=== PATIENT | male | born 1955 | race Caucasian/White ===

== ENCOUNTER → 2019-07-23 | Outpatient (CLI) | payer OTHER ==
[2019-07-23 10:42] LABS: HCT 45.3 % (39.0-53.0); HGB 15.4 gm/dL (13.0-17.5); MCH 32.8 pg (25.0-35.0); MCHC 33.9 g/dL (31.0-37.0); MCV 96.6 fL (80.0-100.0); Mean Platelet Volume 6.9; Platelet Count 273 k/uL (150-450); RBC 4.69 m/uL (4.30-5.90); RDW 14.4 % (11.5-15.5); WBC 6.2 k/uL (3.8-10.6)
[2019-07-23 10:43] LABS: INR 0.9 (<1.2); Partial Thromboplastin Time 28.1 sec (22.0-30.0); Prothrombin Time 9.7 sec (9.0-12.0)
[2019-07-23 10:55] LABS: ALT 28 U/L (21-72); AST 20 U/L (17-59); African American GFR (CKD) >90 (>60 ml/min/1.73 sqM); Albumin 4.4 g/dL (3.5-5.0); Alkaline Phosphatase 83 U/L (38-126); Anion Gap 11 mmol/L; Blood Urea Nitrogen 13 mg/dL (9-20); Calcium 9.8 mg/dL (8.4-10.2); Carbon Dioxide 27 mmol/L (22-30); Chloride 101 mmol/L (98-107); Glucose 94 mg/dL (74-99); Potassium 4.4 mmol/L (3.5-5.1); Sodium 139 mmol/L (137-145); Total Bilirubin 0.6 mg/dL (0.2-1.3); Total Protein 7.5 g/dL (6.3-8.2)
[2019-07-23 11:13] LABS: Appearance,Urine Clear (Clear); Bilirubin,Urine Negative (Negative); Blood,Urine Negative (Negative); Color,Urine Light Yellow; Glucose,Urine (UA) Negative (Negative); Ketones,Urine Negative (Negative); Leukocyte Esterase,Urine Negative (Negative); Nitrite,Urine Negative (Negative); Protein,Urine Negative (Negative); Specific Gravity,Urine 1.008 (1.001-1.035); Urobilinogen,Urine <2.0 mg/dL (<2.0)
== END | disposition home or self-care (01) ==
LOC: LABPAT 09:53
PROVIDERS: ATTEND Orthopaedic Surgery Sports Medicine
DX: Z01.818 Encounter for other preprocedural examination (principal)
CPT/HCPCS: 36415; 80053; 81003; 85027; 85610; 85730; 87070

== ENCOUNTER 2019-11-19 11:17 | Day surgery (SDC) | payer OTHER ==
[2019-11-12 16:18] VITALS: BMI 28.2
[~2019-11-19 11:17] MED LIST: DEXAMETHASONE SOD PHOSPHATE 10 MG/ML 1 ML VIAL IV ONE; HYDROmorphone 0.5 MG/0.5 ML SYRINGE IVP PRN; LACTATED RINGERS 1,000 ML IV SCH; LIDOCAINE 1% 20 ML VIAL (10MG/ML) FOR IV START INTRADERMA PRN; MIDAZOLAM 2 MG/2 ML VIAL IV PRN; ONDANSETRON 4 MG/2 ML VIAL IVP ONE; Pre Op ABX Message 1 EACH MISC MISCELLANE ONE; SCOPOLAMINE 1.5MG/72HR PATCH TRANSDERM ONE
[2019-11-19 11:55] VITALS: TEMP 97.5
[2019-11-19] MEDS ORDERED: KETAMINE 10 MG/ML 20 ML VIAL ONE (12:35)
[2019-11-19] MEDS ORDERED: LIDOCAINE 1% INJ 10MG/ML (20 ML MDV) ONE (12:35)
[2019-11-19] MEDS ORDERED: PROPOFOL 10 MG/ML 20 ML VIAL IV ONE (12:35)
[2019-11-19] MEDS ORDERED: MIDAZOLAM 2 MG/2 ML VIAL ONE (12:35)
[2019-11-19] MEDS ORDERED: ePHEDrine SULFATE/0.9% NACL/PF 50 MG/5 ML SYRINGE IV ONE (12:35)
[2019-11-19] MEDS ORDERED: fentaNYL (PF) 50 MCG/ML 2 ML AMP ONE (12:35)
[2019-11-19] MEDS ORDERED: LIDOCAINE 1%-EPI 1:100,000 20 ML VIAL SQ ONE ×2 (12:56)
[2019-11-19] MEDS ORDERED: BUPIVACAINE (PF) 0.5% 30 ML VIAL SQ ONE (12:56)
[2019-11-19 14:02] VITALS: PULSE 87
--- NOTE | 2019-11-19 14:06 | P.OP ---
Date of Procedure: 11/19/19 Preoperative Diagnosis: Right carpal tunnel syndrome Postoperative Diagnosis: Right carpal tunnel syndrome Procedure(s) Performed: Right endoscopic carpal tunnel release Anesthesia: MAC, local Surgeon: Joseph Vincent Estimated Blood Loss (ml): 1 Disposition: same day Indications for Procedure: The patient is a pleasant 64-year-old male who was diagnosed with bilateral carpal tunnel syndrome. Treatment options (and associated risks and benefits) were discussed in the office. The patient elected to proceed with surgical release, beginning with the right side. In preop, the operative site was confirmed and marked. All questions and concerns were addressed to patient's satisfaction. Consent forms were signed. Description of Procedure: The patient was positioned supine with the right arm on a hand table. A tourniquet was applied. Monitored anesthesia was administered uneventfully. A time-out was performed, confirming patient identifiers, the operative side, site and the procedure to be performed: all team members expressed agreement. Using aseptic technique, local anesthetic was injected into the subcutaneous tissues around the planned incision. The right upper extremity was then prepped and draped in standard, sterile fashion. The limb was exsanguinated with an Esmarch and the tourniquet was inflated. Loupe magnification was used throughout the case for optimum visualization. A 1.5 cm transverse incision was marked just proximal to the wrist flexion crease, in line with the radial border of the ring finger. The skin was sharply incised. The subcutaneous tissues were noted to be quite dense. These were divided with blunt, spreading dissection. The volar carpal fascia was identified and sharply incised. The median nerve was identified below. This had a flattened, dusky appearance, consistent with chronic compression. The nerve was fairly adherent to the underside of the carpal fashion. A [place] elevator was inserted and used to gently release the adhesions. A synovial elevator was inserted to release additional adhesions on the underside of the transverse carpal ligament distally. The washboard effect was palpable. A dilator was inserted to sound and enlarge the carpal tunnel. The hamate hook was palpable ulnarly. The introitus to the tunnel was fairly tight and the distal expansion of the volar carpal fascia was quite thickened. This was further released with scissors under direct visualization. The side-specific guide and camera were inserted. The transverse carpal ligament was clearly visualized above. The distal edge of the ligament was identified and palpated with a probe. A rasp was used to clear the remaining synovial adhesions. The endoscopic blade was inserted and the distal half of the ligament was sharply incised. Residual distal transverse fibers were released and then the proximal portion of the ligament was divided. Wide release of ligament was visually confirmed. The camera was removed. The volar carpal fascia proximal to the incision was released with scissors under direct visualization. The tourniquet was released after 15 minutes at 250 mm Hg. Good hemostasis was obtained with manual pressure. The wound was thoroughly irrigated with normal saline. The incision was closed with interrupted 4-0 Nylon sutures. Additional local anesthetic with epinephrine was injected for adjunctive postoperative pain control and hemostasis. A soft, sterile dressing was applied. All sponge, needle and instrument counts were correct at the end of the case. The patient tolerated the procedure well and was transferred to recovery in stable condition.
[2019-11-19 14:15] VITALS: BP 127/76; RESP 16
== END 2019-11-19 14:28 | disposition home or self-care (01) ==
LOC: OR 11:17
PROVIDERS: ATTEND Orthopaedic Surgery
DX: G56.03 Carpal tunnel syndrome, bilateral upper limbs (principal); I10 Essential (primary) hypertension; E78.5 Hyperlipidemia, unspecified; F17.210 Nicotine dependence, cigarettes, uncomplicated; K21.9 Gastro-esophageal reflux disease without esophagitis; M19.231 Secondary osteoarthritis, right wrist; H91.90 Unspecified hearing loss, unspecified ear; D64.9 Anemia, unspecified; Z87.19 Personal history of other diseases of the digestive system; R26.81 Unsteadiness on feet; Z96.653 Presence of artificial knee joint, bilateral; Z79.899 Other long term (current) drug therapy; Z79.891 Long term (current) use of opiate analgesic
CPT/HCPCS: 29848; J2250; J1100; J2405; J2001; J3010; J2704

== ENCOUNTER → 2021-04-11 | Outpatient (CLI) | payer OTHER ==
--- NOTE | 2021-04-12 02:52 | MR ---
EXAMINATION TYPE: MR cervical spine wo con DATE OF EXAM: 04/11/2021 COMPARISON: None HISTORY: Stiff neck, pain in shoulders, numbness in both hands. Multiplanar multiecho imaging of the cervical spine was performed without contrast. Vertebra have normal alignment. There is degenerative disc space narrowing from C3 to T1 with small p osterior multilevel cervical disc herniation. Spinal canal measures 7.5 mm at C4-5 which is the [place]. Canal is 7.9 mm at C3-4. There is no compression fracture. Cervical cord has normal signa l pattern. There is no edema. Brainstem is intact. There is no cervical paraspinal mass. There is hyp ertrophic multilevel facet arthropathy. IMPRESSION: Multilevel spondylotic changes. Mild relative spinal stenosis at C3-4 and C4-5. No significant cord c ompression. No fracture.
== END | disposition home or self-care (01) ==
LOC: RADMRIMAIN 17:54
PROVIDERS: ATTEND Orthopaedic Surgery
DX: M48.02 Spinal stenosis, cervical region (principal); M47.812 Spondylosis without myelopathy or radiculopathy, cervical region
CPT/HCPCS: 72141

== ENCOUNTER → 2021-04-13 | Outpatient (CLI) | payer OTHER ==
[2021-04-13 11:25] LABS: Basophils # (A) 0.04 X 10*3/uL (0.00-0.10); Basophils % (A) 0.8 %; Eosinophils # (A) 0.12 X 10*3/uL (0.04-0.35); Eosinophils % (A) 2.4 %; HCT 43.6 % (39.6-50.0); HGB 14.4 g/dL (13.0-17.0); Lymphocytes # (A) 1.75 X 10*3/uL (0.90-5.00); Lymphocytes % (A) 35.1 %; MCH 32.1 pg (27.0-32.0); MCV 97.3 fL (80.0-97.0); Mean Platelet Volume 9.9 fL (9.5-12.2); Monocytes # (A) 0.54 X 10*3/uL (0.20-1.00); Monocytes % (A) 10.8 %; Neutrophils # (A) 2.52 X 10*3/uL (1.80-7.70); Neutrophils % (A) 50.7 %; Platelet Count 251 X 10*3/uL (140-440); RBC 4.48 X 10*6/uL (4.40-5.60); RDW 12.8 % (11.5-14.5); WBC 4.98 X 10*3/uL (4.50-10.00)
[2021-04-13 14:00] LABS: African American GFR (CKD) 109.4 (60.0-200.0); Albumin 4.5 g/dL (3.80-4.90); Albumin/Globulin Ratio 1.96 (1.60-3.17); Anion Gap 6.9 mmol/L (4.00-12.00); Calcium 9.7 mg/dL (8.7-10.3); Carbon Dioxide 26.1 mmol/L (21.6-31.8); Chol/HDL Ratio 2.37; Globulin 2.3 g/dL (1.6-3.3); LDL Cholesterol,Calculated 67.2 mg/dL (0.0-131.0); Non-African American GFR(CKD) 94.4 (60.0-200.0); Potassium 4.6 mmol/L (3.5-5.5); Total Bilirubin 0.5 mg/dL (0.3-1.2); Total Protein 6.8 g/dL (6.2-8.2); VLDL Calculation 14.8 mg/dL (5.00-40.00)
== END | disposition home or self-care (01) ==
LOC: LABWHC1 07:05
PROVIDERS: ATTEND Internal Medicine
DX: Z00.01 Encounter for general adult medical examination with abnormal findings (principal); E78.00 Pure hypercholesterolemia, unspecified; I10 Essential (primary) hypertension
CPT/HCPCS: 36415; 80053; 80061; 85025

== ENCOUNTER → 2021-05-31 | Outpatient (CLI) | payer OTHER ==
[2021-05-31 14:03] VITALS: BP 127/68; PULSE 82; RESP 18; TEMP 98.4
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
== END ==
LOC: PNWHC3 13:10
PROVIDERS: ATTEND Specialist
DX: M54.12 Radiculopathy, cervical region (principal)
CPT/HCPCS: 99211

== ENCOUNTER 2021-07-10 07:14 | Day surgery (SDC) | payer OTHER ==
[2021-07-05 11:59] VITALS: BMI 28.7
[~2021-07-10 07:14] MED LIST changes: -DEXAMETHASONE SOD PHOSPHATE 10 MG/ML 1 ML VIAL IV ONE; -HYDROmorphone 0.5 MG/0.5 ML SYRINGE IVP PRN; -LIDOCAINE 1% 20 ML VIAL (10MG/ML) FOR IV START INTRADERMA PRN; -MIDAZOLAM 2 MG/2 ML VIAL IV PRN; -ONDANSETRON 4 MG/2 ML VIAL IVP ONE; -Pre Op ABX Message 1 EACH MISC MISCELLANE ONE; -SCOPOLAMINE 1.5MG/72HR PATCH TRANSDERM ONE
[2021-07-10 08:16] VITALS: TEMP 97.8
[2021-07-10] MEDS ORDERED: LACTATED RINGERS 1,000 ML IV ONE (08:16)
[2021-07-10] MEDS ORDERED: IOPAMIDOL M200 10 ML VIAL ONE (08:44)
[2021-07-10] MEDS ORDERED: fentaNYL (PF) 50 MCG/ML 2 ML AMP ONE (08:44)
[2021-07-10] MEDS ORDERED: MIDAZOLAM 2 MG/2 ML VIAL ONE (08:44)
[2021-07-10] MEDS ORDERED: DEXAMETHASONE SOD PHOSPHATE 10 MG/ML 1 ML VIAL ONE (08:44)
--- NOTE | 2021-07-10 08:57 | P.PCN ---
Date of Procedure: 07/10/21 Surgeon: Alva Duffy Pathology: none sent Condition: stable Disposition: PACU Description of Procedure: PROCEDURE 1. Cervical epidural steroid injection under fluoroscopic guidance, C7-T1 left paramedian approach. 2. Cervical epidurogram. : PREOPERATIVE DIAGNOSIS: Cervical radiculopathy, cervical spondylosis without myelopathy POSTOPERATIVE DIAGNOSIS: : Same as above ANESTHESIA: Local anesthesia with 1% lidocaine and IV moderate conscious sedation with Versed and Fentanyl . EBL 0 PROCEDURE INDICATION: The patient with neck pain and radiculopathy unresponsive to conservative treatment consents for procedure. PROCEDURE DESCRIPTION / TECHNIQUE: The patient was seen and identified in the preoperative area. Risks, benefits, complications, including but not limited to infections ,bleeding , allergic reactions to the medications ,and not complete pain relief, and alternatives were discussed with the patient, the patient agreed to proceed with the procedure and signed the consent. Patient was taken to the OR and time out was completed. The patient was placed in the prone position on the procedure table. A pillow was placed under the patients chest to increase the flexion of the cervical spine . The cervical area was prepped and draped in the usual sterile fashion. Vital signs were closely monitored during the procedure. Conscious sedation was used during the procedure to decrease patients anxiety. Using anterior-posterior fluoroscopy, the C7-T1 interlaminar space was identified and the skin over this site was marked and then infiltrated with 1% lidocaine subcutaneously. Subsequently, a 20-gauge 3-1/2-inch Tuohy epidural needle was inserted and advanced toward the epidural space by means of loss of resistance to air technique and guided by AP and lateral fluoroscopy. The needle tip contacted the lamina of T1 vertebra first, then it was walked off bone and into the epidural space using the loss of to air and fluoroscopic guidance to identify the epidural space. The correct needle position in the epidural space was verified with the injection of 1 mL of the water soluble contrast dye Isovue and observing an excellent epidurogram with the epidural spread of the dye, after negative aspiration for blood and CSF and in the absence of paresthesias. Again after negative aspiration, 20 mg of Decadron was injected and a washout of epidurogram was seen. Needle was withdrawn intact, skin was cleansed, and bandages were applied. A copy of the needle placement picture was saved to the fluoroscopy machine.
[2021-07-10] MEDS ORDERED: IV FLUID CONTINUATION 1,000 ML IV ONE (09:01)
[2021-07-10 09:05] VITALS: RESP 16
[2021-07-10 09:20] VITALS: BP 122/72; PULSE 70
--- NOTE | 2021-07-10 09:55 | FL ---
Fluoroscopy HISTORY: Pain 6 seconds fluoroscopy time supplied to the referring clinician. 1 intraoperative C-arm image documen ts the procedure. See dictated report from anesthesia.
== END 2021-07-10 09:31 | disposition home or self-care (01) ==
LOC: ORPAIN 07:14
PROVIDERS: ATTEND Anesthesiology
DX: M47.22 Other spondylosis with radiculopathy, cervical region (principal)
CPT/HCPCS: 62321; J2250; J1100; J3010; Q9966; 99152

== ENCOUNTER → 2021-08-06 | Outpatient (CLI) | payer OTHER ==
[2021-08-06 14:48] VITALS: BP 122/71; PULSE 89; RESP 18
--- NOTE | 2021-08-06 15:07 | P.PN ---
Subjective Progress Note Date: 08/06/21 This is a 66-year-old gentleman with history of neck pain with radiation to the left upper extremity with numbness and tingling in the left hand. The patient received 1 cervical epidural steroid injection which did not give him any pain relief. The patient takes 2 pills of Tylenol Extra Strength every day for his pain. His pain level today is 6 out of 10 on a scale from 0-10. 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 Patient denies new-onset weakness, bowel/bladder incontinence, or any other signs or symptoms of cauda equina syndrome. There are no signs of acute intoxication, and no indications of medication diversion or overuse. In addition to above, 13-point review of systems is also negative for chest pain, shortness of breath, changes in vision, changes in hearing, new onset weakness, abdominal pain, diarrhea, extreme fatigue, malaise, fever, skin changes, homicidal or suicidal ideation, or bowel or bladder incontinence. 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 Explanation: When patients on opioids, opioid and psychological risk scores were reviewed. Diagnoses, prognoses, and multiple treatment options including but not limited to physical therapy, interventional therapies, adjuvant medical therapies, narcotic medication therapies, and surgery were discussed with the patient and all questions were answered to the patient's satisfaction. 2. Opioid agreement:When patients are prescribed opoids through our clinic, opioid agreement is signed with the patient and the patient is warned not to use opioids while driving or before driving and not to combine opioids with benzodiazepines or alcohol. 3. Counseling: When patient is smoking or obese, the patient was counseled extensively on SMOKING CESSATION, BODY MASS INDEX, EXERCISE. Specifically, the patient was instructed regarding the importance of smoking cessation, obesity, and exercise in the context of both chronic pain and overall health. 4. Procedures: The patient would like to avoid injections now and he will continue taking Tylenol. 5. Consultations: None 6. Investigations: None 7. Medications: None prescribed today 8. Disposition: Return to clinic as needed 9. Maps were reviewed and were appropriate. Objective - Vital Signs Vital signs: Vital Signs Temp Pulse 89 08/06/21 14:45 Resp 18 08/06/21 14:45 BP 122/71 08/06/21 14:45 Pulse Ox 96 08/06/21 14:45
== END ==
LOC: PNWHC3 14:19
PROVIDERS: ATTEND Anesthesiology
DX: M47.22 Other spondylosis with radiculopathy, cervical region (principal); M79.18 Myalgia, other site; F17.200 Nicotine dependence, unspecified, uncomplicated
CPT/HCPCS: 99211

== ENCOUNTER 2024-02-07 16:02 | Inpatient (IN) | payer MEDICARE, OTHER ==
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
[2024-02-07 17:09] LABS: Basophils % (A) 0 %; Eosinophils % (A) 0 %; HCT 42.6 % (39.0-53.0); HGB 13.9 gm/dL (13.0-17.5); Lymphocytes # (A) 0.3 k/uL (1.0-4.8); Lymphocytes % (A) 5 %; MCHC 32.7 g/dL (31.0-37.0); Mean Platelet Volume 8.2; Monocytes # (A) 0.2 k/uL (0-1.0); Monocytes % (A) 4 %; Neutrophils # (A) 4.9 k/uL (1.3-7.7); Neutrophils % (A) 90 %; Platelet Count 156 k/uL (150-450); RBC 4.22 m/uL (4.30-5.90); RDW 12.5 % (11.5-15.5); WBC 5.5 k/uL (3.8-10.6)
[2024-02-07 17:17] LABS: ALT 23 U/L (4-49); AST 48 U/L (17-59); African American GFR (CKD) >90 (>60 ml/min/1.73 sqM); Albumin 4.4 g/dL (3.5-5.0); Alkaline Phosphatase 73 U/L (38-126); Anion Gap 9 mmol/L; Blood Urea Nitrogen 14 mg/dL (9-20); Calcium 9.3 mg/dL (8.4-10.2); Carbon Dioxide 23 mmol/L (22-30); Chloride 103 mmol/L (98-107); Glucose 106 mg/dL (74-99); Magnesium 1.6 mg/dL (1.6-2.3); Non-African American GFR(CKD) >90 (>60 ml/min/1.73 sqM); Potassium 4.1 mmol/L (3.5-5.1); Sodium 135 mmol/L (137-145); Total Bilirubin 0.6 mg/dL (0.2-1.3); Total Protein 7.1 g/dL (6.3-8.2)
[2024-02-07] MEDS: ONDANSETRON 4 MG/2 ML VIAL IVP STA (17:17)
[2024-02-07] MEDS: KETOROLAC 15 MG/ML 1 ML VIAL IVP STA (17:18)
[2024-02-07] MEDS: SODIUM CHLORIDE 0.9% 1,000 ML IV STA (17:18)
[2024-02-07 17:22] LABS: Prothrombin Time 10.8 sec (10.0-12.5)
[2024-02-07 17:26] LABS: NT-Pro-B-Type Natriuretic Pept 1220 pg/mL
[2024-02-07 19:19] LABS: Appearance,Urine Clear (Clear); Bilirubin,Urine Negative (Negative); Blood,Urine Moderate (Negative); Color,Urine Yellow; Glucose,Urine (UA) Negative (Negative); Ketones,Urine Trace (Negative); Leukocyte Esterase,Urine Negative (Negative); Mucus,Urine Occasional /hpf; Nitrite,Urine Negative (Negative); Protein,Urine 1+ (Negative); RBC,Urine 2 /hpf (0-5); Urobilinogen,Urine <2.0 mg/dL (<2.0); WBC,Urine <1 /hpf (0-5)
[2024-02-07] MEDS: ACETAMINOPHEN TAB 500 MG TAB PO STA (19:36)
--- NOTE | 2024-02-07 20:22 | XR ---
EXAMINATION TYPE: XR chest 2V DATE OF EXAM: 02/07/2024 8:17 PM CLINICAL INDICATION:Male, 68 years old with history of difficulty breathing; [facility] COMPARISON: None TECHNIQUE: XR chest 2V Frontal and lateral views of the chest. FINDINGS: Lungs/Pleura: Hazy right lung base airspace disease which partially obscures the diaphragm. Slide obs curation of the left medial hemidiaphragm. No evidence of pleural effusion or pneumothorax. Pulmonary vascularity: Unremarkable. Heart/mediastinum: Cardiomediastinal silhouette is unremarkable. Atherosclerotic calcifications are seen in the aorta. Musculoskeletal: No acute osseous pathology. IMPRESSION: Bibasilar airspace disease, most likely related to underlying infectious/inflammatory process.
[2024-02-07] MEDS ORDERED: NALOXONE 0.4 MG/ML 1 ML VIAL IVP PRN (20:43)
[2024-02-07] MEDS ORDERED: IPRATROPIUM-ALBUTEROL 3 ML NEB INHALATION PRN (20:43)
[2024-02-07] MEDS ORDERED: PNEUMONIA PROTOCOL UTILIZED 1 EACH MISC PO PRN (20:45)
[2024-02-07] MEDS: IPRATROPIUM-ALBUTEROL 3 ML NEB INHALATION STA (20:59)
[2024-02-07] MEDS: MORPHINE SULFATE 4 MG/ML SYRINGE IVP STA (23:11)
[2024-02-08] MEDS: methylPREDNISolone SOD SUCCI 125 MG/2 ML VIAL IV STA (00:08)
[2024-02-08] MEDS: AZITHROMYCIN 500 MG in SODIUM CHLORIDE 0.9% 250 ML IVPB STA (00:08)
[2024-02-08] MEDS: NICOTINE 7MG/24HR PATCH TRANSDERM SCH (00:45)
[2024-02-08] MEDS: methylPREDNISolone SOD SUCCI 125 MG/2 ML VIAL IV SCH (00:49)
[2024-02-08] MEDS: SODIUM CHLORIDE 0.9% 1,000 ML IV SCH (01:17)
[2024-02-08] MEDS: OSELTAMIVIR 75 MG CAP PO SCH (01:17)
[2024-02-08] MEDS: ACETAMINOPHEN TAB 500 MG TAB PO STA (07:32)
[2024-02-08] MEDS: IPRATROPIUM-ALBUTEROL 3 ML NEB INHALATION SCH (08:49)
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
[2024-02-08] MEDS: HEPARIN SODIUM,PORCINE 5,000 UNIT/ML 1 ML VIAL SQ SCH (13:47)
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
[2024-02-08] MEDS: ACETAMINOPHEN TAB 500 MG TAB PO PRN (20:58)
--- NOTE | 2024-02-08 23:37 | HP ---
HISTORY AND PHYSICAL CHIEF COMPLAINT: Shortness of breath. HISTORY OF PRESENT ILLNESS: This is a 68-year-old gentleman with a past medical history of multiple medical problems, including chronic bronchitis and COPD, being followed by Dr. Salmon as the outpatient, admitted with shortness of breath and cough, myalgia, congestion, and the patient came to [facility] and was tested positive for influenza A. Chest x- ray showed possible bilateral infiltrates. There is no history of any fever, rigors, or chills at this time. PAST MEDICAL HISTORY: Chronic bronchitis, COPD, hypertension, hyperlipidemia. Rest of the chart is also reviewed. HOME MEDICATIONS: Reviewed include lisinopril. Dose and rest of medications reviewed. ALLERGIES: None. FAMILY HISTORY: No history of any heart disease in the family. SOCIAL HISTORY: Current smoking. REVIEW OF SYSTEMS: A 14-point review is negative except as mentioned earlier. PHYSICAL EXAMINATION: VITAL SIGNS: Pulse is 91, blood pressure 140/76, respirations 17. HEENT: Conjunctivae normal. NECK: No JVD. CARDIOVASCULAR: S1, S2. RESPIRATION: Reveals bilateral scattered rhonchi. ABDOMEN: Soft. NERVOUS SYSTEM: No focal. LABORATORY DATA: Reviewed. X-ray reviewed ASSESSMENT: 1. Chronic obstructive pulmonary disease acute exacerbation with acute influenza A. 2. Acute bilateral pneumonia, possibly viral pneumonia. 3. Hypertension. 4. Hyperlipidemia. 5. History of degenerative joint disease. RECOMMENDATIONS AND DISCUSSION: This is a 68-year-old gentleman presented with multiple complex medical issues. We will monitor the patient closely. We will initiate intensive bronchodilators, steroids, order procalcitonin. If the procalcitonin high, there might be indication for antibiotics; otherwise, a prognosis guarded. Further recommendations to follow Infectious Disease and Pulmonary consultations. See orders for details. MMODL / IJN: [id number] /
[2024-02-09 08:28] LABS: Basophils # (A) 0 X 10*3/uL (0.00-0.10); Basophils % (A) 0 %; Eosinophils # (A) 0 X 10*3/uL (0.04-0.35); Eosinophils % (A) 0 %; HCT 41.9 % (39.6-50.0); HGB 13.7 g/dL (13.0-17.0); Lymphocytes # (A) 0.49 X 10*3/uL (0.90-5.00); Lymphocytes % (A) 6.6 %; MCH 32.4 pg (27.0-32.0); MCHC 32.7 g/dL (32.0-37.0); MCV 99.1 FL (80.0-97.0); Mean Platelet Volume 10.9 FL (9.5-12.2); Monocytes # (A) 0.14 X 10*3/uL (0.20-1.00); Monocytes % (A) 1.9 %; NRBC Per 100 WBC 0 X 10*3/uL (0.00-0.01); Neutrophils # (A) 6.82 X 10*3/uL (1.80-7.70); Neutrophils % (A) 91.2 %; Platelet Count 146 X 10*3/uL (140-440); RBC 4.23 X 10*6/uL (4.40-5.60); RDW 12.7 % (11.5-14.5); WBC 7.47 X 10*3/uL (4.50-10.00)
[2024-02-09 08:43] LABS: BUN/Creat Ratio 23.57 Ratio (12.00-20.00); Blood Urea Nitrogen 16.5 mg/dL (9.0-27.0); Calcium 8.9 mg/dL (8.7-10.3); Carbon Dioxide 23.2 mmol/L (21.6-31.8); Chloride 105 mmol/L (96-109); Glucose 157 mg/dL (70-110); Potassium 4.7 mmol/L (3.5-5.5); Sodium 138 mmol/L (135-145)
[2024-02-09] MEDS: ATORVASTATIN 20 MG TAB PO SCH (09:10)
[2024-02-09] MEDS: MONTELUKAST 10 MG TAB PO SCH (09:10)
[2024-02-09] MEDS: lisinopriL 10 MG TAB PO SCH (09:10)
--- NOTE | 2024-02-09 13:33 | PN ---
PROGRESS NOTE DATE OF SERVICE: 02/09/2024 SUBJECTIVE: This is a 68-year-old gentleman, who was admitted with COPD acute exacerbation. Has influenza A, is being closely monitored. No chest pain. No palpitations. No fever. OBJECTIVE: VITAL SIGNS: Pulse is 63, blood pressure 160/83, respirations 19. CHEST: A few scattered rhonchi and crackles. ABDOMEN: Soft. NERVOUS SYSTEM: Nonfocal. LABORATORY DATA: Reviewed. Procalcitonin 0.11. ASSESSMENT: 1. Chronic obstructive pulmonary disease acute exacerbation. Acute influenza A. 2. High serum procalcitonin. 3. Acute bilateral pneumonia, possibly viral pneumonia versus bacterial pneumonia. 4. Hypertension. 5. Hyperlipidemia. 6. History of degenerative joint disease. RECOMMENDATIONS AND DISCUSSION: Recommend to continue current management and continue symptomatic treatment, otherwise continue the empiric antibiotics, bronchodilators, steroids. Guarded prognosis. Further recommendations to follow. MMODL / IJN: [id number] /
--- NOTE | 2024-02-09 16:30 | P.PN ---
Subjective Progress Note Date: 02/09/24 This is a 68-year-old male patient was coming in with increased dyspnea, cough congestion chest tightness and wheezing. The patient is a chronic smoker quit smoking recently. Prior to that he was smoking 1/2 pack of cigarettes a day. 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 Does not utilize any maintenance as per medication. He states that he has an albuterol rescue near the use on the history basis. No previous hospitalization for pneumonia or any respiratory complications. 1 the white cell count is at 5.5 with a hemoglobin 15.9 and a platelet count of 156. Normal electrolytes. Normal troponins. proBNP level is 1220. Influenza A was positive. Chest x-ray at time of admission was reviewed and shows bibasilar airspace disease consistent with inflammatory process/pneumonia. The patient is currently on 2 L of O2 nasal cannula with a pulse ox of 95%. He is currently on Tamiflu. He is on IV Solu-Medrol and DuoNeb updrafts. He is also on IV fluids. No nausea vomiting or emesis. No altered mentation. The patient is seen today February 09, 2024 in follow-up on the regular medical floor. He is currently resting in bed. Awake and alert in no acute distress. He is feeling a bit better. He is still with some significant cough and congestion. He is maintaining O2 saturation in the 90s on 2 L/min per nasal cannula. Procalcitonin was 0.11. He remains on ceftriaxone. Continued on Kirsten flu. Continue on bronchodilators and steroids. Sputum culture pending. Blood cultures pending. White count 7.4. Hemoglobin 13.7. Sodium 138. Potassium 4.7. Bicarb 23. BUN 17. Creatinine 0.7. Glucose 157. Objective - Vital Signs Vital signs: Vital Signs Temp 97.7 F 02/09/24 14:00 Pulse 78 02/09/24 14:00 Resp 18 02/09/24 14:00 BP 129/63 02/09/24 14:00 Pulse Ox 96 02/09/24 14:00 FiO2 Intake & Output 02/08/24 02/09/24 02/09/24 18:59 06:59 18:59 Other: # Voids 3 4 - Exam GENERAL EXAM: Alert, pleasant 68-year-old male, on 2 L nasal cannula, comfortable in no apparent distress. HEAD: Normocephalic. EYES: Normal reaction of pupils, equal size. NOSE: Clear with pink turbinates. THROAT: No erythema or exudates. NECK: No masses, no JVD. CHEST: No chest wall deformity. LUNGS: Equal air entry with few scattered rhonchi. CVS: S1 and S2 normal with no audible murmur, regular rhythm. ABDOMEN: No hepatosplenomegaly, normal bowel sounds, no guarding or rigidity. SPINE: No scoliosis or deformity SKIN: No rashes CENTRAL NERVOUS SYSTEM: No focal deficits, tone is normal in all 4 extremities. EXTREMITIES: There is no peripheral edema. No clubbing, no cyanosis. Peripheral pulses are intact. - Labs CBC & Chem 7: 02/09/24 04:28 02/09/24 04:28 Labs: Abnormal Lab Results - Last 24 Hours (Table) 02/08/24 02/09/24 02/09/24 Range/Units 15:56 04:28 04:28 RBC 4.23 L (4.40-5.60) X 10*6/uL MCV 99.1 H (80.0-97.0) FL MCH 32.4 H (27.0-32.0) pg Lymphocytes # 0.49 L (0.90-5.00) X 10*3/uL Monocytes # 0.14 L (0.20-1.00) X 10*3/uL Eosinophils # 0 L (0.04-0.35) X 10*3/uL BUN/Creatinine Ratio 23.57 H (12.00-20.00) Ratio Glucose 157 H (70-110) mg/dL Procalcitonin 0.11 H (0.02-0.09) ng/mL Microbiology - Last 24 Hours (Table) 02/07/24 22:52 Blood Culture - Preliminary Blood 02/07/24 23:05 Blood Culture - Preliminary Blood 02/08/24 06:02 Gram Stain - Preliminary Sputum Assessment and Plan Assessment: Acute influenza A infection/syndrome, unvaccinated, symptoms started more than 48 hours ago, on Tamiflu Acute hypoxic respiratory failure currently on 2 L of oxygen by nasal cannula Acute bibasilar pulmonary infiltrates, procalcitonin 0.11, remains on ceftriaxone Acute COPD exacerbation secondary to above Hyperlipidemia Hypertension History of smoking Plan: The patient was seen and evaluated Labs and medications reviewed Continue Tamiflu Continue bronchodilators and steroids Continue antibiotics Follow-up chest x-ray in a.m. Educated regarding the importance of complete smoking cessation We will continue to follow I have personally seen and examined the patient, performed the documentation and the assessment and plan as written. Number of minutes spent on the visit: 10.
--- NOTE | 2024-02-09 17:59 | P.PN ---
Subjective Progress Note Date: 02/09/24 Principal diagnosis: Reason for follow-up is acute influenza A and a question of pneumonia Patient is a 68-year-old male past medical history significant for hypertension hyperlipidemia COPD current everyday smoker, patient presented to hospital for evaluation of increasing shortness of breath along with myalgias cough and congestion, patient did tested positive for influenza A chest x-ray bibasilar airspace disease, procalcitonin mild elevated 0.11 On today's visit that is 02/09/2024,the patient denies any fever or any chills, patient is breathing comfortably on 2 L nasal cannula oxygen the patient denies chest pain cough has decreased in intensity, patient denies abdominal pain, no nausea vomiting or diarrhea. Patient white count 7.47, creatinine 0.7 urine for Legionella antigen negative sputum cultures pending Objective - Vital Signs Vital signs: Vital Signs Temp 98.3 F 02/09/24 08:00 Pulse 80 02/09/24 12:37 Resp 19 02/09/24 08:00 BP 164/83 02/09/24 08:00 Pulse Ox 97 02/09/24 08:58 FiO2 Intake & Output 02/08/24 02/09/24 02/09/24 18:59 06:59 18:59 Other: # Voids 3 4 - Exam GENERAL DESCRIPTION: An elderly male lying in bed in no distress RESPIRATORY SYSTEM: Unlabored breathing , decreased breath sounds at bases, no wheeze HEART: S1 S2 regular rate and rhythm , ABDOMEN: Soft , no tenderness EXTREMITIES: No edema feet - Labs CBC & Chem 7: 02/09/24 04:28 02/09/24 04:28 Labs: Abnormal Lab Results - Last 24 Hours (Table) 02/08/24 02/09/24 02/09/24 Range/Units 15:56 04:28 04:28 RBC 4.23 L (4.40-5.60) X 10*6/uL MCV 99.1 H (80.0-97.0) FL MCH 32.4 H (27.0-32.0) pg Lymphocytes # 0.49 L (0.90-5.00) X 10*3/uL Monocytes # 0.14 L (0.20-1.00) X 10*3/uL Eosinophils # 0 L (0.04-0.35) X 10*3/uL BUN/Creatinine Ratio 23.57 H (12.00-20.00) Ratio Glucose 157 H (70-110) mg/dL Procalcitonin 0.11 H (0.02-0.09) ng/mL Microbiology - Last 24 Hours (Table) 02/07/24 22:52 Blood Culture - Preliminary Blood 02/07/24 23:05 Blood Culture - Preliminary Blood 02/08/24 06:02 Gram Stain - Preliminary Sputum Assessment and Plan (1) Pneumonia Current Visit: Yes Status: Acute Code(s): J18.9 - PNEUMONIA, UNSPECIFIED ORGANISM SNOMED Code(s): 429331976 (2) Influenza Current Visit: Yes Status: Acute Code(s): J11.1 - FLU DUE TO UNIDENTIFIED INFLUENZA VIRUS W OTH RESP MANIFEST SNOMED Code(s): 3309339 Plan: 1patient presented hospital with increasing shortness of breath and cough in this patient with evidence of acute influenza A chest that is also showing bibasilar infiltrate suspicious for possible pneumonia patient is bringing up some purulent sputum likely component of secondary bacterial pneumonia 2sputum culture currently pending procalcitonin was very mildly elevated 3-patient to continue with the Tamiflu to finish a 5-day course of therapy 4-patient has shown improvement and will continue Rocephin 2 g daily while wa iting for the culture to finalize Dictation was produced using [employer] dictation software. please excuse any grammatical, word or spelling errors. Time with Patient: Less than 30
[2024-02-10] MEDS: CALCIUM CARBONATE 500 MG CHEWABLE PO PRN (02:02)
--- NOTE | 2024-02-10 08:22 | XR ---
EXAMINATION TYPE: XR chest 1V portable DATE OF EXAM: 02/10/2024 COMPARISON: 02/07/2024 HISTORY: Difficulty breathing TECHNIQUE: Single frontal view of the chest is obtained. FINDINGS: A more localized area of density in the right upper lobe. Underlying chronic interstitial pulmonary fibrosis, COPD are noted. Diffuse osteopenia throughout the shoulders, degenerative changes Remote fractures. Calcification along the left humeral head likely related to chronic rotator cuff di sease. Calcifications in the soft tissues of the neck likely related carotid artery atherosclerotic d isease. IMPRESSION: 1 COPD, pulmonary fibrosis and a more localized area of consolidation right upper lobe c orrelate pneumonia. Follow-up to resolution to exclude underlying neoplasm.
[2024-02-10 08:26] LABS: Basophils # (A) 0.01 X 10*3/uL (0.00-0.10); Basophils % (A) 0.1 %; Eosinophils # (A) 0 X 10*3/uL (0.04-0.35); Eosinophils % (A) 0 %; HCT 37.4 % (39.6-50.0); HGB 12.7 g/dL (13.0-17.0); Lymphocytes # (A) 0.44 X 10*3/uL (0.90-5.00); Lymphocytes % (A) 4.8 %; MCH 32.6 pg (27.0-32.0); MCV 95.9 FL (80.0-97.0); Mean Platelet Volume 10.7 FL (9.5-12.2); Monocytes # (A) 0.46 X 10*3/uL (0.20-1.00); NRBC Per 100 WBC 0 X 10*3/uL (0.00-0.01); Neutrophils # (A) 8.17 X 10*3/uL (1.80-7.70); Neutrophils % (A) 89.7 %; Platelet Count 157 X 10*3/uL (140-440); RDW 12.7 % (11.5-14.5); WBC 9.12 X 10*3/uL (4.50-10.00)
[2024-02-10 08:51] LABS: Blood Urea Nitrogen 14.7 mg/dL (9.0-27.0); Calcium 8.7 mg/dL (8.7-10.3); Carbon Dioxide 24.2 mmol/L (21.6-31.8); Chloride 103 mmol/L (96-109); Glucose 137 mg/dL (70-110); Potassium 4.1 mmol/L (3.5-5.5); Sodium 138 mmol/L (135-145)
--- NOTE | 2024-02-10 15:11 | P.PN ---
Subjective Progress Note Date: 02/10/24 Principal diagnosis: Acute influenza A infection with acute hypoxic respiratory failure and acute exacerbation of COPD acute right upper lobe pneumonia This is a 68-year-old male patient was coming in with increased dyspnea, cough congestion chest tightness and wheezing. The patient is a chronic smoker quit smoking recently. Prior to that he was smoking 1/2 pack of cigarettes a day. 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 Does not utilize any maintenance as per medication. He states that he has an albuterol rescue near the use on the history basis. No previous hospitalization for pneumonia or any respiratory complications. 1 the white cell count is at 5.5 with a hemoglobin 15.9 and a platelet count of 156. Normal electrolytes. Normal troponins. proBNP level is 1220. Influenza A was positive. Chest x-ray at time of admission was reviewed and shows bibasilar airspace disease consistent with inflammatory process/pneumonia. The patient is currently on 2 L of O2 nasal cannula with a pulse ox of 95%. He is currently on Tamiflu. He is on IV Solu-Medrol and DuoNe b updrafts. He is also on IV fluids. No nausea vomiting or emesis. No altered mentation. The patient is seen today February 09, 2024 in follow-up on the regular medical floor. He is currently resting in bed. Awake and alert in no acute distress. He is feeling a bit better. He is still with some significant cough and congestion. He is maintaining O2 saturation in the 90s on 2 L/min per nasal cannula. Procalcitonin was 0.11. He remains on ceftriaxone. Continued on Tamiflu. Continue on bronchodilators and steroids. Sputum culture pending. Blood cultures pending. White count 7.4. Hemoglobin 13.7. Sodium 138. Potassium 4.7. Bicarb 23. BUN 17. Creatinine 0.7. Glucose 157. Reevaluate today on 02/10/2024, patient is feeling a bit better, less cough less wheezing less shortness of breath, however his chest x-ray is showing a new infiltrate which was not present on admission involving the right upper lobe consistent with superimposed bacterial pneumonia involving the right upper lobe. WBC count is 9.12 hemoglobin 12.7 electrolytes are normal renal profile is normal procalcitonin level is a bit up to 0.11, sputum cultures are negative showing mostly moderate normal respiratory boyd, blood cultures have shown no growth. Patient remains on antibiotics in the form of ceftriaxone, patient is also on Tamiflu, and has been receiving bronchodilators and steroids/Solu-Medro l. Objective - Vital Signs Vital signs: Vital Signs Temp 97.3 F L 02/10/24 13:19 Pulse 83 02/10/24 13:19 Resp 20 02/10/24 13:19 BP 167/65 02/10/24 13:19 Pulse Ox 94 L 02/10/24 13:19 FiO2 Intake & Output 02/09/24 02/10/24 02/10/24 18:59 06:59 18:59 Intake Total 1000 Balance 1000 Intake: Intake, IV Titration 600 Amount Sodium Chloride 0.9% 1, 600 000 ml @ 50 mls/hr IV . Q20H [place] Rx#:[id number] Oral 400 Other: # Voids 4 3 - Exam General: Revealed a 68-year-old white male in no distress, on room air O2 saturation 94% Skin: Skin is warm and dry and no rashes or lesions are noted. Eye: Pupils are equal, round and reactive to light, extra-ocular movements are intact; there is normal conjunctiva bilaterally. Ears, nose, mouth and throat: There are moist mucous membranes and no oral lesi ons. Neck: The neck is supple, there is no tenderness or JVD. Cardiovascular: There is a regular rate and rhythm. No murmur, rub or gallop is appreciated. Respiratory: Diminished breath sound bilaterally no crackles rhonchi or wheezes Gastrointestinal: Soft, non-distended, non-tender abdomen without masses or organomegaly noted. There is no rebound or guarding present. Bowel sounds are unremarkable. Back: There is no tenderness to palpation in the midline. There is no obvious deformity. Musculoskeletal: Normal ROM, no tenderness, There is no pedal edema. There is no calf tenderness or swelling. No cords were appreciated. Neurological: CN II-XII intact, Cranial nerves III through XII are intact. There are no obvious motor or sensory deficits. Coordination appears grossly intact. Speech is normal. Psychiatric: Cooperative, appropriate mood & affect, normal judgment. - Labs CBC & Chem 7: 02/10/24 05:47 02/10/24 05:47 Labs: Abnormal Lab Results - Last 24 Hours (Table) 02/10/24 02/10/24 Range/Units 05:47 05:47 RBC 3.90 L (4.40-5.60) X 10*6/uL Hgb 12.7 L (13.0-17.0) g/dL Hct 37.4 L (39.6-50.0) % MCH 32.6 H (27.0-32.0) pg Neutrophils # 8.17 H (1.80-7.70) X 10*3/uL Lymphocytes # 0.44 L (0.90-5.00) X 10*3/uL Eosinophils # 0 L (0.04-0.35) X 10*3/uL Creatinine 0.5 L (0.6-1.5) mg/dL BUN/Creatinine Ratio 29.40 H (12.00-20.00) Ratio Glucose 137 H (70-110) mg/dL Microbiology - Last 24 Hours (Table) 02/07/24 22:52 Blood Culture - Preliminary Blood 02/07/24 23:05 Blood Culture - Preliminary Blood 02/08/24 06:02 Gram Stain - Final Sputum Sputum Culture - Final Assessment and Plan Assessment: Impression: Acute influenza A infection/syndrome, unvaccinated, symptoms started more than 48 hours ago, on Tamiflu Superimposed acute right upper lobe pneumonia Acute exacerbation of COPD Acute hypoxic respiratory failure secondary to all of the above Hyperlipidemia Hypertension History of smoking Recommendation: Continue antibiotics Continue Tamiflu Continue bronchodilators and steroids Consider repeat chest x-ray in a.m. and possible discharge planning in the next 24 to 48 hours Will continue to follow Time with Patient: Less than 30
--- NOTE | 2024-02-10 15:20 | P.PN ---
Subjective Progress Note Date: 02/10/24 This is a pleasant 68-year-old male who was recently admitted with COPD exacerbation as well as acute influenza A infection. Patient underwent repeat chest x-ray continuing to show COPD along with pulmonary fibrosis and concerns of right lower lobe consolidation versus pneumonia and neoplasm cannot be ruled out. Patient continues on 2 L and currently weaning FiO2 as tolerated. Will provide incentive spirometer and encouraged the patient to continue using at least 10 times every hour while awake. Patient is expressing the want and need to go home although agreeable to stay as patient is not quite ready for discharge yet. Pulmonary following and patient is continued on Tamiflu along with antibiotics and IV steroids. Patient to continue with DuoNebs [id number] as well. Patient reports shortness of breath and bronchospastic with no worsening. Patient denies chest pain or palpitations. Patient reports to tolerating diet with no reported nausea or vomiting noted. Will follow-up with repeat chest x-ray in the a.m. Review of systems: Constitutional: No reports of fatigue, fever, or chills Cardiovascular: No reports of chest pain or palpitations Respiratory: No reports of worsening shortness of breath, reports continued cough GI: No reports of nausea, no reports of vomiting, no diarrhea : No reports of dysuria or retention Neurovascular: No reports of generalized weakness, reports has been up and walking as much as he can All medications have been reviewed PHYSICAL EXAMINATION: GENERAL: The patient is alert and oriented x4, Well developed, well nourished. Appears older than stated age HEENT: Pupils are round and equally reacting to light. EOMI. no scleral icterus. No conjunctival pallor. Normocephalic, atraumatic. No pharyngeal erythema. No thyromegaly. CARDIOVASCULAR: S1 and S2 muffled PULMONARY: diminished breath sounds bilaterally with coarse scattered rhonchi and expiratory wheezing noted. ABDOMEN: soft. Nontender on exam. non-distended, normoactive bowel sounds. No palpable organomegaly. MUSCULOSKELETAL: No joint swelling or deformity. EXTREMITIES: No cyanosis, clubbing, or pedal edema. NEUROLOGICAL: Gross neurological examination did not reveal any focal deficits. SKIN: No rashes. Assessment: Chronic obstructive pulmonary disease, acute exacerbation Acute hypoxic respiratory failure secondary to COPD exacerbation as well as b ilateral pneumonia Acute influenza A Elevated procalcitonin Acute bilateral pneumonia, possibly viral versus bacterial, present on admission Hypertension history Hyperlipidemia History of degenerative joint disease GI prophylaxis DVT prophylaxis Full code Plan: Recommend to continue with current medications and management with pulmonary following. Patient is continued on IV steroids along with DuoNeb treatments, Tamiflu, antibiotics Recommend repeat chest x-ray in the a.m. and wean FiO2 as tolerated. Patient is currently maintained on 2 L and reports does not wear oxygen outpatient Will add incentive spirometer and encouraged the patient to continue using at least 10 times every hour while awake Will evaluate for home O2 on day of discharge Encourage complete tobacco cessation and medication compliance Patient is adamant about wanting to go home although agreeable to stay and will follow-up with repeat chest x-ray and discussed with pulmonary on discharge planning Due to multiple complex medical issues, prognosis is guarded Possible discharge in the next 24 to 48 hours The impression and plan of care has been dictated by Brandy Becerril, nurse practitioner as directed. Dr. Jay MD I have performed a history and examination and MDM of this patient, discussed the same with the dictator, and agree with the dictator's assessment and plan as written ,documented as a scribe. Based on total visit time, I have performed more than 50% of the visit. Any additional findings or plans will be noted. Objective - Vital Signs Vital signs: Vital Signs Temp 98.3 F 02/10/24 07:13 Pulse 68 02/10/24 11:45 Resp 19 02/10/24 07:13 BP 168/91 02/10/24 07:13 Pulse Ox 98 02/10/24 07:13 FiO2 Intake & Output 02/09/24 02/10/24 02/10/24 18:59 06:59 18:59 Intake Total 1000 Balance 1000 Intake: Intake, IV Titration 600 Amount Sodium Chloride 0.9% 1, 600 000 ml @ 50 mls/hr IV . Q20H [place] Rx#:[id number] Oral 400 Other: # Voids 4 3 - Labs CBC & Chem 7: 02/10/24 05:47 02/10/24 05:47 Labs: Abnormal Lab Results - Last 24 Hours (Table) 02/10/24 02/10/24 Range/Units 05:47 05:47 RBC 3.90 L (4.40-5.60) X 10*6/uL Hgb 12.7 L (13.0-17.0) g/dL Hct 37.4 L (39.6-50.0) % MCH 32.6 H (27.0-32.0) pg Neutrophils # 8.17 H (1.80-7.70) X 10*3/uL Lymphocytes # 0.44 L (0.90-5.00) X 10*3/uL Eosinophils # 0 L (0.04-0.35) X 10*3/uL Creatinine 0.5 L (0.6-1.5) mg/dL BUN/Creatinine Ratio 29.40 H (12.00-20.00) Ratio Glucose 137 H (70-110) mg/dL Microbiology - Last 24 Hours (Table) 02/07/24 22:52 Blood Culture - Preliminary Blood 02/07/24 23:05 Blood Culture - Preliminary Blood 02/08/24 06:02 Gram Stain - Final Sputum Sputum Culture - Final
--- NOTE | 2024-02-10 15:25 | P.PN ---
Subjective Progress Note Date: 02/10/24 Principal diagnosis: Reason for follow-up is acute influenza A and a question of pneumonia Patient is a 68-year-old male past medical history significant for hypertension hyperlipidemia COPD current everyday smoker, patient presented to hospital for evaluation of increasing shortness of breath along with myalgias cough and congestion, patient did tested positive for influenza A chest x-ray bibasilar airspace disease, procalcitonin mild elevated 0.11 On today's visit that is 02/10/2024,the patient remains to be afebrile, patient is on room air not requiring supplemental oxygen and denies any shortness of breath no chest pain patient cough has decreased in intensity denies any nausea vomiting abdominal pain or diarrhea. Patient white count is 9.12, creatinine 0.5 sputum culture has been negative Objective - Vital Signs Vital signs: Vital Signs Temp 97.3 F L 02/10/24 13:19 Pulse 80 02/10/24 15:19 Resp 20 02/10/24 13:19 BP 167/65 02/10/24 13:19 Pulse Ox 94 L 02/10/24 13:19 FiO2 Intake & Output 02/09/24 02/10/24 02/10/24 18:59 06:59 18:59 Intake Total 1000 Balance 1000 Intake: Intake, IV Titration 600 Amount Sodium Chloride 0.9% 1, 600 000 ml @ 50 mls/hr IV . Q20H [facility] Rx#:[id number] Oral 400 Other: # Voids 4 3 - Exam GENERAL DESCRIPTION: An elderly male lying in bed in no distress RESPIRATORY SYSTEM: Unlabored breathing , decreased breath sounds at bases, no wheeze HEART: S1 S2 regular rate and rhythm , ABDOMEN: Soft , no tenderness EXTREMITIES: No edema feet - Labs CBC & Chem 7: 02/10/24 05:47 02/10/24 05:47 Labs: Abnormal Lab Results - Last 24 Hours (Table) 02/10/24 02/10/24 Range/Units 05:47 05:47 RBC 3.90 L (4.40-5.60) X 10*6/uL Hgb 12.7 L (13.0-17.0) g/dL Hct 37.4 L (39.6-50.0) % MCH 32.6 H (27.0-32.0) pg Neutrophils # 8.17 H (1.80-7.70) X 10*3/uL Lymphocytes # 0.44 L (0.90-5.00) X 10*3/uL Eosinophils # 0 L (0.04-0.35) X 10*3/uL Creatinine 0.5 L (0.6-1.5) mg/dL BUN/Creatinine Ratio 29.40 H (12.00-20.00) Ratio Glucose 137 H (70-110) mg/dL Microbiology - Last 24 Hours (Table) 02/07/24 22:52 Blood Culture - Preliminary Blood 02/07/24 23:05 Blood Culture - Preliminary Blood 02/08/24 06:02 Gram Stain - Final Sputum Sputum Culture - Final Assessment and Plan (1) Pneumonia Current Visit: Yes Status: Acute Code(s): J18.9 - PNEUMONIA, UNSPECIFIED ORGANISM SNOMED Code(s): 775742709 (2) Influenza Current Visit: Yes Status: Acute Code(s): J11.1 - FLU DUE TO UNIDENTIFIED INFLUENZA VIRUS W OTH RESP MANIFEST SNOMED Code(s): 4013519 Plan: 1patient presented hospital with increasing shortness of breath and cough in this patient with evidence of acute influenza A chest that is also showing bibasilar infiltrate suspicious for possible pneumonia patient is bringing up some purulent sputum likely component of secondary bacterial pneumonia 2sputum culture currently pending procalcitonin was very mildly elevated 3-patient to continue with the Tamiflu to finish a 5-day course of therapy 4-patient has shown clinical improvement is currently covered with Rocephin 2 g daily to finish therapy with Ceftin Dictation was produced using [employer] dictation software. please excuse any grammatical, word or spelling errors.
[2024-02-10] MEDS: ZOLPIDEM 5 MG TAB PO PRN (22:04)
--- NOTE | 2024-02-11 08:03 | XR ---
EXAMINATION TYPE: XR chest 1V portable DATE OF EXAM: 02/11/2024 COMPARISON: 02/10/2024 HISTORY: Pneumonia TECHNIQUE: Single frontal view of the chest is obtained. FINDINGS: There is a localized area of density in the right upper lobe. Underlying chronic interstit ial pulmonary fibrosis, COPD are noted. Diffuse osteopenia, arthropathy of the shoulders, degenerativ e changes of the spine and remote rib fractures. Calcification along the left humeral head likely rel ated to chronic rotator cuff disease. Calcifications in the soft tissues of the neck likely related c arotid artery atherosclerotic disease. IMPRESSION: 1. Stable right upper lobe area of consolidation. Findings may be secondary to pneumonia. Underlying neoplasm not excluded.
[2024-02-11 09:04] VITALS: RESP 19; TEMP 97.7
[2024-02-11 09:41] VITALS: BP 136/71
[2024-02-11 11:34] VITALS: PULSE 72
--- NOTE | 2024-02-11 14:41 | P.PN ---
Subjective Progress Note Date: 02/11/24 This is a 68-year-old male patient was coming in with increased dyspnea, cough congestion chest tightness and wheezing. The patient is a chronic smoker quit smoking recently. Prior to that he was smoking 1/2 pack of cigarettes a day. 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 Does not utilize any maintenance as per medication. He states that he has an albuterol rescue near the use on the history basis. No previous hospitalization for pneumonia or any respiratory complications. 1 the white cell count is at 5.5 with a hemoglobin 15.9 and a platelet count of 156. Normal electrolytes. Normal troponins. proBNP level is 1220. Influenza A was positive. Chest x-ray at time of admission was reviewed and shows bibasilar airspace disease consistent with inflammatory process/pneumonia. The patient is currently on 2 L of O2 nasal cannula with a pulse ox of 95%. He is currently on Tamiflu. He is on IV Solu-Medrol and DuoNeb updrafts. He is also on IV fluids. No nausea vomiting or emesis. No altered mentation. The patient is seen today February 09, 2024 in follow-up on the regular medical floor. He is currently resting in bed. Awake and alert in no acute distress. He is feeling a bit better. He is still with some significant cough and congestion. He is maintaining O2 saturation in the 90s on 2 L/min per nasal cannula. Procalcitonin was 0.11. He remains on ceftriaxone. Continued on Kirsten flu. Continue on bronchodilators and steroids. Sputum culture pending. Blood cultures pending. White count 7.4. Hemoglobin 13.7. Sodium 138. Potassium 4.7. Bicarb 23. BUN 17. Creatinine 0.7. Glucose 157. Reevaluate today on 02/10/2024, patient is feeling a bit better, less cough less wheezing less shortness of breath, however his chest x-ray is showing a new infiltrate which was not present on admission involving the right upper lobe consistent with superimposed bacterial pneumonia involving the right upper lobe. WBC count is 9.12 hemoglobin 12.7 electrolytes are normal renal profile is normal procalcitonin level is a bit up to 0.11, sputum cultures are negative showing mostly moderate normal respiratory boyd, blood cultures have shown no growth. Patient remains on antibiotics in the form of ceftriaxone, patient is also on Tamiflu, and has been receiving bronchodilators and steroids/Solu- Medrol. The patient is seen today February 11, 2024 in follow-up on the regular medical floor. He is awake and alert in no acute distress. He is feeling nearly back to his baseline. Continues with a loose nonproductive cough. He remains on DuoNeb inhalations, ceftriaxone, Solu-Medrol and Singulair. NicoDerm patch is in place. Continued on Tamiflu. Continued on heparin for DVT prophylaxis. No new labs today. Objective - Vital Signs Vital signs: Vital Signs Temp 97.7 F 02/11/24 07:36 Pulse 72 02/11/24 11:33 Resp 19 02/11/24 07:36 BP 136/71 02/11/24 09:08 Pulse Ox 94 L 02/11/24 09:08 FiO2 Intake & Output 02/10/24 02/11/24 02/11/24 18:59 06:59 18:59 Intake Total 240 Balance 240 Intake: Oral 240 Other: # Voids 3 2 - Exam GENERAL EXAM: Alert, pleasant 68-year-old male, on room air, in no apparent distress. HEAD: Normocephalic. EYES: Normal reaction of pupils, equal size. NOSE: Clear with pink turbinates. THROAT: No erythema or exudates. NECK: No masses, no JVD. CHEST: No chest wall deformity. LUNGS: Equal air entry with few scattered rhonchi. CVS: S1 and S2 normal with no audible murmur, regular rhythm. ABDOMEN: No hepatosplenomegaly, normal bowel sounds, no guarding or rigidity. SPINE: No scoliosis or deformity SKIN: No rashes CENTRAL NERVOUS SYSTEM: No focal deficits, tone is normal in all 4 extremities. EXTREMITIES: There is no peripheral edema. No clubbing, no cyanosis. Peripheral pulses are intact. - Labs CBC & Chem 7: 02/10/24 05:47 02/10/24 05:47 Labs: Microbiology - Last 24 Hours (Table) 02/07/24 22:52 Blood Culture - Preliminary Blood 02/07/24 23:05 Blood Culture - Preliminary Blood Assessment and Plan Assessment: Acute influenza A infection/syndrome, unvaccinated, symptoms started more than 48 hours ago, on Tamiflu Acute hypoxic respiratory failure recovered and on room air Acute bibasilar pulmonary infiltrates, procalcitonin 0.11, remains on ceftriaxone Acute COPD exacerbation secondary to above Hyperlipidemia Hypertension History of smoking Plan: The patient was seen and evaluated Medications reviewed Recovered and on room air Cleared for discharge from the pulmonary standpoint Complete a course of Tamiflu Complete a course of antibiotics Complete a course of prednisone taper Continue bronchodilators Educated regarding complete smoking cessation Follow-up in our office in 1 week I have personally seen and examined the patient, performed the documentation and the assessment and plan as written. Number of minutes spent on the visit: 10.
--- NOTE | 2024-02-11 15:10 | P.DS ---
Providers Date of admission: 02/07/24 22:56 Expected date of discharge: 02/11/24 Attending physician: Jack Mccormick MD Consults: 02/07/24 20:43 Consult Physician Routine Consulting Provider: Naomi Dacosta Consult Reason/Comments: Infuenza A, acute hypoxic respiratory failure Do you want consulting provider notified?: Yes 02/08/24 13:30 Consult Physician Routine Consulting Provider: Avi Estevez Consult Reason/Comments: flu Do you want consulting provider notified?: Yes Primary care physician: Natalia Salmon Hospital Course: Final diagnosis Chronic obstructive pulmonary disease, acute exacerbation Acute hypoxic respiratory failure secondary to COPD exacerbation as well as bilateral pneumonia Acute influenza A Elevated procalcitonin Acute bilateral pneumonia, likely viral, present on admission Hypertension history Hyperlipidemia History of degenerative joint disease GI prophylaxis DVT prophylaxis Full code Discharge disposition Patient is being discharged in a stable condition with guarded prognosis to home. Patient will follow-up with Dr. Salmon in the outpatient setting upon discharge. Patient is to continue with prednisone taper along with cefdinir and breathing treatments with close outpatient follow-up with pulmonary as scheduled. Patient will be needing repeat imaging to discuss with pulmonary regarding findings on the right lung within the next 3 months. Total time taken is greater than 35 minutes. Hospital course This is a 68year-old male who was recently admitted with increased shortness of breath with chronic obstructive pulmonary disease acute exacerbation along with acute hypoxic respiratory failure. Patient also found to be acute influenza A with an elevated procalcitonin. Patient underwent repeat chest x-ray with concerns of bilateral pneumonia likely viral showing concerns of an infiltrate or pneumonia and neoplasm not excluded. Patient will need outpatient follow-up with additional testing with possible CT chest in the next few months. Patient has been instructed to follow-up with pulmonary outpatient in the next 1 to 2 weeks. Patient will continue on DuoNeb treatments along with a prednisone taper as well as cefdinir on discharge. Patient has completed the Tamiflu course. Patient has weaned off oxygen and currently maintaining 90% or above on room air. Patient has been extensively counseled on tobacco cessation and close outpatient follow-up. Patient has been cleared by consultations for discharge. Please refer to consultation notes for further HPI. Currently no reports of chest pain, no worsening shortness of breath, or palpitations. Patient is afebrile. No reports of nausea or vomiting and patient is tolerating diet. Patient will be discharged home today. Guarded prognosis. Physical exam: Gen: This is a 68-year-old male who is awake, alert and oriented x 3, well- developed, well-nourished HEENT: Head is atraumatic, normocephalic. Pupils equal, round. Sclerae is anicteric. NECK: Supple. No JVD. No lymphadenopathy. No thyromegaly. LUNGS: Diminished breath sounds bilaterally with some coarse scattered rhonchi. Faint expiratory wheezing noted as well. No intercostal retractions. HEART: S1, S2 are muffled ABDOMEN: Soft. Bowel sounds are present. No masses. No tenderness. EXTREMITIES: No pedal edema. No calf tenderness. NEUROLOGICAL: Patient is awake, alert and oriented x3. Cranial nerves 2 through 12 are grossly intact. Please refer to medication reconciliation sheet for a list of medications. The impression and plan of care has been dictated by Brandy Becerril, Nurse Practitioner as directed. Dr. Jay MD I have performed a history and examination and MDM of this patient, discussed the same with the dictator, and agree with the dictator's assessment and plan as written ,documented as a scribe. Based on total visit time, I have performed more than 50% of the visit. Patient Condition at Discharge: Good Plan - Discharge Summary New Discharge Prescriptions: New predniSONE 10 mg PO DIRECTED #30 tab Ipratropium-Albuterol Nebulize [Duoneb 0.5 mg-3 mg/3 ml Soln] 3 ml INHALATION RT-QID #100 each Ipratropium-Albuterol Nebulize [Duoneb 0.5 mg-3 mg/3 ml Soln] 3 ml INHALATION RT-Q2H PRN each PRN Reason: Shortness Of Breath Or Wheezing Cefdinir [Omnicef] 300 mg PO BID 7 Days #14 cap Calcium Carbonate [Tums] 1,000 mg PO TID PRN tab PRN Reason: Heartburn Albuterol Inhaler [Ventolin Hfa Inhaler] 2 puff INHALATION Q6H PRN #1 each PRN Reason: Shortness Of Breath Continue lisinopriL 30 mg PO DAILY Acetaminophen [Tylenol Extra Strength] 1,000 mg PO Q6H PRN PRN Reason: Pain Ergocalciferol (Vitamin D2) [Drisdol (50,000 Iu)] 1,250 mcg PO TH Atorvastatin [Lipitor] 20 mg PO DAILY Montelukast [Singulair] 10 mg PO DAILY Discharge Medication List lisinopriL 30 mg PO DAILY 07/29/19 [History] Acetaminophen [Tylenol Extra Strength] 1,000 mg PO Q6H PRN 08/03/21 [History] Atorvastatin [Lipitor] 20 mg PO DAILY 08/03/21 [History] Ergocalciferol (Vitamin D2) [Drisdol (50,000 Iu)] 1,250 mcg PO TH 02/07/24 [History] Montelukast [Singulair] 10 mg PO DAILY 02/07/24 [History] Albuterol Inhaler [Ventolin Hfa Inhaler] 2 puff INHALATION Q6H PRN #1 each 02/11/24 [Rx] Calcium Carbonate [Tums] 1,000 mg PO TID PRN tab 02/11/24 [Rx] Cefdinir [Omnicef] 300 mg PO BID 7 Days #14 cap 02/11/24 [Rx] Ipratropium-Albuterol Nebulize [Duoneb 0.5 mg-3 mg/3 ml Soln] 3 ml INHALATION RT-Q2H PRN each 02/11/24 [Rx] Ipratropium-Albuterol Nebulize [Duoneb 0.5 mg-3 mg/3 ml Soln] 3 ml INHALATION RT-QID #100 each 02/11/24 [Rx] predniSONE 10 mg PO DIRECTED #30 tab 02/11/24 [Rx] Follow up Appointment(s)/Referral(s): Anny Gallego MD [STAFF PHYSICIAN] - 1 Week (Please call office to make appointment) Natalia Salmon MD [Primary Care Provider] - 1-2 days (Please call office to make appointment) Patient Instructions/Handouts: Influenza (DC) Activity/Diet/Wound Care/Special Instructions: Activity limited until follow-up Follow-up with primary care provider on discharge Continue taking medications as prescribed Follow-up with pulmonary outpatient Continue to avoid tobacco use and exposure Follow-up outpatient after discussing with pulmonary regarding repeat imaging including CT/chest x-ray with concerns of right lung findings Discharge Disposition: HOME SELF-CARE
[2024-02-11] MEDS ORDERED: CEFDINIR 300 MG CAP PO SCH (21:00)
[2024-02-12] MEDS ORDERED: ERGOCALCIFEROL 1,250 MCG (50,000 IU) CAPSULE PO SCH (09:00)
--- NOTE | 2024-02-12 13:29 | P.PN ---
Subjective Progress Note Date: 02/11/24 Principal diagnosis: Reason for follow-up is acute influenza A and a question of pneumonia Patient is a 68-year-old male past medical history significant for hypertension hyperlipidemia COPD current everyday smoker, patient presented to hospital for evaluation of increasing shortness of breath along with myalgias cough and congestion, patient did tested positive for influenza A chest x-ray bibasilar airspace disease, procalcitonin mild elevated 0.11 On today's visit that is 02/11/2024, the patient continues to be afebrile, the patient is on room air and breathing comfortably, the Pt denies having any chest pain and cough has decreased in intensity , the patient denies having any abdominal pain no vomiting or any diarrhea, feeling better wants to go home. Patient did not have any blood draw today blood and sputum culture has been negative Objective - Vital Signs Vital signs: Vital Signs Temp 97.7 F 02/11/24 07:36 Pulse 72 02/11/24 11:33 Resp 19 02/11/24 07:36 BP 136/71 02/11/24 09:08 Pulse Ox 94 L 02/11/24 09:08 FiO2 Intake & Output 02/10/24 02/11/24 02/11/24 18:59 06:59 18:59 Intake Total 240 Balance 240 Intake: Oral 240 Other: # Voids 3 2 - Exam GENERAL DESCRIPTION: An elderly male lying in bed in no distress RESPIRATORY SYSTEM: Unlabored breathing , decreased breath sounds at bases, no wheeze HEART: S1 S2 regular rate and rhythm , ABDOMEN: Soft , no tenderness EXTREMITIES: No edema feet - Labs CBC & Chem 7: 02/10/24 05:47 02/10/24 05:47 Labs: Microbiology - Last 24 Hours (Table) 02/07/24 22:52 Blood Culture - Preliminary Blood 02/07/24 23:05 Blood Culture - Preliminary Blood 02/08/24 06:02 Gram Stain - Final Sputum Sputum Culture - Final Assessment and Plan (1) Pneumonia Status: Acute Code(s): J18.9 - PNEUMONIA, UNSPECIFIED ORGANISM SNOMED Code(s): 804663418 (2) Influenza Status: Acute Code(s): J11.1 - FLU DUE TO UNIDENTIFIED INFLUENZA VIRUS W OTH RESP MANIFEST SNOMED Code(s): 6147190 Plan: 1patient presented hospital with increasing shortness of breath and cough in this patient with evidence of acute influenza A chest that is also showing bibasilar infiltrate suspicious for possible pneumonia patient is bringing up some purulent sputum likely component of secondary bacterial pneumonia 2sputum culture currently pending procalcitonin was very mildly elevated 3-patient to finish 5-day course of Tamiflu 4-patient has shown clinical improvement, plan is to finish therapy with Ceftin Dictation was produced using [employer] dictation software. please excuse any grammatical, word or spelling errors.
--- NOTE | 2024-02-18 09:32 | CDI ---
Documentation Clarification Form Date: 02/18/2024 09:04:09 AM From: Estela Torres RN, CCDS Email: [email or web address] Admit Date: 02/07/2024 10:56:00 PM Patient Name: Reji Jimenez Visit Number: [id number] Discharge Date: 02/11/2024 01:00:00 PM ATTENTION: The Clinical Documentation Specialists (CDI) and [facility] Coding Staff appreciate your assistance in clarifying documentation. Please respond to the clarification below the line at the bottom and electronically sign. The CDI & [facility] Coding staff will review the response and follow-up if needed. Please note: Queries are made part of the Legal Health Record. If you have any questions, please contact the author of this message via ITS. Dr. Taz Thompson Pneumonia is documented in the progress notes and discharge summary. Additional clarification regarding the type of pneumonia is requested. History/Risk Factors: Chronic bronchitis, COPD, HTN, HLD. Presented with SOB, cough and congestion. Admitted with Acute influenza A and acute BL pneumonia. Clinical Indicators: 02/07 ID consult: acute influenza A. CXR showing bibasilar infiltrate suspicious for possible pneumonia. Patient is bringing up some purulent sputum, likely component of secondary bacterial pneumonia. 02/10 Pulmonary: "chest x-ray is showing a new infiltrate which was not present on admission involving the right upper lobe consistent with superimposed bacterial pneumonia involving the right upper lobe. Discharge summary: "Acute bilateral pneumonia, likely viral, present on admission." 02/07 Sputum: gram stain - moderate gram positive cocci and moderate gram negative bacilli. Moderate normal respiratory boyd. 02/07 Procalcitonin: 0.11 02/06 CXR: underlying infectious/inflammatory process. 02/09 CXR: COPD, pulmonary fibrosis and a more localized area of consolidation right upper lobe correlate pneumonia. 02/10 CXR: Stable right upper lobe area of consolidation. Findings may be secondary to pneumonia. 02/10 Lung/Breathing assessment: Diminished breath sounds bilaterally with some coarse scattered rhonchi. Treatment: IV Solumedrol 125mg IV x1 on 02/06 then 60mg Q6H 02/07-02/10; Tamiflu 750mg po daily 02/07-02/10; 1L 0.9 NS IV bolus on 02/06 Antibiotics: IV Azithromycin 500mg x1 on 02/07; IV Rocephin 2gm x1 on 02/07; IV Rocephin 2gm Q24H 02/07-02/10 O2: 2-3L NC Breathing Tx: Albuterol/Atrovent x1 on 02/06 then QID scheduled 02/07-02/10 Please further clarify the type of pneumonia/pneumonias, if known: [x ] Bacterial Pneumonia due to gram positive cocci [ ] Gram Negative Bacterial Pneumonia [ ] Viral Pneumonia [ ] Other, please specify [ ] Unable to determine MTDD
== END 2024-02-11 13:00 | disposition home or self-care (01) | DRG 193 ==
LOC: EC 16:02 → 4SSUR 22:55 → OBSVTOIN 22:56 → 4SSUR 23:36
PROVIDERS: ADMIT Internal Medicine; ATTEND Internal Medicine
DX: J10.08 Influenza due to other identified influenza virus with other specified pneumonia (principal); J96.01 Acute respiratory failure with hypoxia; J44.1 Chronic obstructive pulmonary disease with (acute) exacerbation; J15.9 Unspecified bacterial pneumonia; J44.0 Chronic obstructive pulmonary disease with (acute) lower respiratory infection; E78.5 Hyperlipidemia, unspecified; F17.210 Nicotine dependence, cigarettes, uncomplicated; I10 Essential (primary) hypertension; Z79.899 Other long term (current) drug therapy; Z96.651 Presence of right artificial knee joint; Z96.612 Presence of left artificial shoulder joint; Z96.611 Presence of right artificial shoulder joint
CPT/HCPCS: 36415; 71045; 71046; 80048; 80053; 81001; 83735; 83880; 84145; 84484; 85025; 85610; 85730; 87040; 87070; 87205; 87449; 87636; 93005; 94640; 94760; 96374; 96375; 99285

== ENCOUNTER 2024-02-12 05:42 | Emergency (ER) | payer MEDICARE, OTHER ==
[2024-02-12 06:14] VITALS: TEMP 98
[2024-02-12] MEDS: ONDANSETRON 4 MG/2 ML VIAL IVP STA (06:19)
[2024-02-12] MEDS: KETOROLAC 15 MG/ML 1 ML VIAL IVP STA (06:20)
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
[2024-02-12] MEDS: SODIUM CHLORIDE 0.9% 1,000 ML IV STA (06:24)
[2024-02-12 06:33] LABS: Basophils % (A) 0 %; Eosinophils % (A) 0 %; HCT 35.3 % (39.0-53.0); HGB 11.9 gm/dL (13.0-17.5); Lymphocytes # (A) 1.2 k/uL (1.0-4.8); Lymphocytes % (A) 13 %; MCH 33.5 pg (25.0-35.0); MCHC 33.6 g/dL (31.0-37.0); MCV 99.5 fL (80.0-100.0); Mean Platelet Volume 8.7; Monocytes # (A) 0.8 k/uL (0-1.0); Monocytes % (A) 8 %; Neutrophils # (A) 7.2 k/uL (1.3-7.7); Neutrophils % (A) 76 %; Platelet Count 183 k/uL (150-450); RBC 3.55 m/uL (4.30-5.90); RDW 12.5 % (11.5-15.5); WBC 9.4 k/uL (3.8-10.6)
[2024-02-12 07:01] LABS: Appearance,Urine Clear (Clear); Bilirubin,Urine Negative (Negative); Blood,Urine Negative (Negative); Color,Urine Colorless; Glucose,Urine (UA) Negative (Negative); Ketones,Urine Negative (Negative); Leukocyte Esterase,Urine Negative (Negative); Nitrite,Urine Negative (Negative); Protein,Urine Trace (Negative); Specific Gravity,Urine 1.022 (1.001-1.035); Urobilinogen,Urine <2.0 mg/dL (<2.0)
[2024-02-12 07:10] LABS: ALT 59 U/L (4-49); AST 52 U/L (17-59); African American GFR (CKD) >90 (>60 ml/min/1.73 sqM); Albumin 3.1 g/dL (3.5-5.0); Alkaline Phosphatase 42 U/L (38-126); Amylase 42 U/L (30-110); Anion Gap 7 mmol/L; Blood Urea Nitrogen 47 mg/dL (9-20); Calcium 8.6 mg/dL (8.4-10.2); Carbon Dioxide 23 mmol/L (22-30); Chloride 106 mmol/L (98-107); Glucose 105 mg/dL (74-99); Lipase 35 U/L (23-300); Magnesium 1.8 mg/dL (1.6-2.3); Non-African American GFR(CKD) >90 (>60 ml/min/1.73 sqM); Sodium 136 mmol/L (137-145); Total Bilirubin 0.4 mg/dL (0.2-1.3); Total Protein 5.3 g/dL (6.3-8.2)
[2024-02-12 07:48] LABS: Prothrombin Time 10.6 sec (10.0-12.5)
[2024-02-12 08:03] LABS: Partial Thromboplastin Time 19.2 sec (22.0-30.0)
[2024-02-12 08:41] VITALS: PULSE 81
--- NOTE | 2024-02-12 09:13 | XR ---
EXAMINATION TYPE: XR chest 2V DATE OF EXAM: 02/12/2024 COMPARISON: 02/11/2024 TECHNIQUE: PA and lateral views submitted. HISTORY: Pneumonia FINDINGS: There is a stable density in the right upper lobe. Underlying chronic interstitial pulmonary fibrosis , COPD are noted. Diffuse osteopenia, arthropathy of the shoulders, degenerative changes of the spine and remote rib fr actures. Calcification along the left humeral head likely related to chronic rotator cuff disease. Ca lcifications in the soft tissues of the neck likely related carotid artery atherosclerotic disease. IMPRESSION: 1. COPD with stable vague density in the right upper lobe given differences in technique. Favor pneum onia. Follow to resolution to exclude underlying neoplasm.
--- NOTE | 2024-02-12 09:18 | CT ---
EXAMINATION TYPE: CT brain wo con CT DLP: 1095.2 mGycm, Automated exposure control for dose reduction was used. DATE OF EXAM: 02/12/2024 8:34 AM COMPARISON: . CLINICAL INDICATION:Male, 68 years old with history of fall, Fall TECHNIQUE: Brain: Axial CT images of the brain were obtained with coronal and sagittal reformats created and rev iewed. Contrast used: None. Oral contrast used: None. FINDINGS: Brain: Extra-axial spaces: No abnormal extra-axial fluid collections. Ventricular system: Within normal limits Cerebral parenchyma: No acute intraparenchymal hemorrhage or mass effect. The contreras-white junction is well differentiated. Cerebellum: Unremarkable. Mass effect: No evidence of midline shift. Intracranial vasculature: unremarkable Soft tissues: Normal. Calvarium/osseous structures: No depressed skull fracture. Paranasal sinuses and mastoid air cells: Mild scattered paranasal sinus disease. Visualized orbits: Orbital contents are intact. IMPRESSION: No acute intracranial process.
--- NOTE | 2024-02-12 09:46 | CT ---
EXAMINATION TYPE: CT abdomen pelvis w con CT DLP: 1903.5 mGycm, Automated exposure control for dose reduction was used. DATE OF EXAM: 02/12/2024 8:42 AM COMPARISON: None. CLINICAL INDICATION:Male, 68 years old with history of generalized abd pain; Generalized abdominal pa in TECHNIQUE: Axial CT abdomen pelvis w con;Sagittal and coronal reformats were created on a separate w orkstation. Contrast used:100 ml mL of Isovue 300 with IV Contrast, (none if empty) Oral contrast used: without Oral Contrast (none if empty) FINDINGS: LOWER CHEST: Small patches of pneumonic infiltrate are seen. Bacterial and viral acute infectious pro cess is consistent with the history. ABDOMEN LIVER: Unremarkable GALLBLADDER AND BILE DUCTS: Unremarkable. PANCREAS: Unremarkable. SPLEEN: Unremarkable. ADRENAL GLANDS: Unremarkable. KIDNEYS AND URETERS: No evidence of hydronephrosis or renal calculus. The ureters are unremarkable. PELVIS BLADDER: Unremarkable REPRODUCTIVE: Unremarkable. ABDOMEN & PELVIS STOMACH AND BOWEL: Stomach and duodenum are unremarkable. No evidence of bowel obstruction. PERITONEUM/RETROPERITONEUM: No evidence of pneumoperitoneum or free fluid. VASCULATURE: No evidence of aortic aneurysm. MUSCULOSKELETAL: No acute osseous abnormalities LYMPH NODES: No gross evidence for lymphadenopathy. SOFT TISSUE/ABDOMINAL WALL: Unremarkable IMPRESSION: 1. Pneumonia, bacterial, and/or influenza. Pneumonia is a known cause of abdominal pain.
[2024-02-12 11:12] VITALS: BP 106/66; RESP 18
== END 2024-02-12 10:50 | disposition home or self-care (01) ==
LOC: EC 05:42
DX: R10.84 Generalized abdominal pain (principal); J18.9 Pneumonia, unspecified organism; D64.9 Anemia, unspecified; J44.9 Chronic obstructive pulmonary disease, unspecified; F17.200 Nicotine dependence, unspecified, uncomplicated
CPT/HCPCS: 99285; 96374; 96375; 96361 ×2; 36415; 93005; 80053; 82150; 83605; 83690; 83735; 84484; 85025; 85610; 85730; 81003; 71046; 70450; 74177; J2405; J1885; Q9967

== ENCOUNTER 2024-07-02 12:29 | Day surgery (SDC) | payer MEDICARE, OTHER ==
[2024-07-02] MEDS ORDERED: LACTATED RINGERS 1,000 ML BAG ONE (13:30)
[2024-07-02] MEDS ORDERED: LIDOCAINE 1% INJ 10MG/ML (20 ML MDV) ONE (13:32)
[2024-07-02] MEDS ORDERED: PROPOFOL 10 MG/ML 20 ML VIAL IV ONE (13:32)
--- NOTE | 2024-07-21 16:30 | PCN ---
PROCEDURE NOTE REQUESTING PHYSICIAN: Dr. Natalia Salmon. BRIEF HISTORY: The patient is a 69-year-old pleasant white male scheduled for an elective colonoscopy as a part of screening for colon cancer/positive Cologuard. PROCEDURES PERFORMED: Colonoscopy with snare polypectomy. PREOPERATIVE DIAGNOSES: Screening for colon cancer and positive Cologuard. ANESTHESIA: IV sedation per Anesthesia. DESCRIPTION OF PROCEDURE: After informed consent was obtained from the patient, he was brought into the endoscopy unit. IV conscious sedation was administered by Anesthesia under continuous monitoring. Initial digital rectal examination was normal. The Olympus CF-190 video colonoscope was inserted into the rectum, gradually advanced into the cecum. Careful examination was performed as the scope was gradually being withdrawn. The ileocecal valve and the appendiceal orifice were visualized and appeared normal. The prep was excellent. Mucosa of the cecum had a 7 mm sessile polyp, removed by cold snare polypectomy. In the ascending colon, there was a 5 mm x2 and a 1-cm polyp, removed by snare polypectomy. In the transverse colon, there were 4 polyps, all measuring between 3 mm to 4 mm in size, removed by cold snare polypectomy. In the descending colon, there was a 1-cm polyp, removed by snare polypectomy. In the sigmoid colon, there was a 5-mm polyp, removed by snare polypectomy. Retroflexion was performed in the rectum. No lesions were noted. The patient tolerated the procedure well. IMPRESSION: 1. 7 mm cecal polyp, status post cold snare polypectomy. 2. 5 mm x2 and 1 cm ascending colon polyp, status post snare polypectomy. 3. 4 mm x4 transverse colon polyp, status post snare polypectomy. 4. 1 cm descending colon polyp, status post snare polypectomy. 5. 5 mm sigmoid polyp, status post snare polypectomy. RECOMMENDATIONS: Findings of this examination were discussed with the patient as well as the family. He was advised to follow up with the biopsy results and if the biopsy reveals adenoma, he can have a repeat colonoscopy in 3 years. MMODL / IJN: [id number] / ZAHRA
== END 2024-07-02 14:30 ==
LOC: ORWHC2ENDO 12:29
PROVIDERS: ATTEND Internal Medicine Gastroenterology
DX: Z12.11 Encounter for screening for malignant neoplasm of colon
CPT/HCPCS: 45385

== ENCOUNTER 2025-01-20 05:38 | Day surgery (SDC) | payer MEDICARE, OTHER ==
[2024-12-31 11:36] VITALS: BMI 29.8
[~2025-01-20 05:38] MED LIST changes: -LACTATED RINGERS 1,000 ML IV SCH; +TRANEXAMIC 1,000 MG/100ML-NACL 1,000 MG in SALINE 1 100ML.BAG IVPB PRN
[2025-01-20] MEDS: IV FLUID CONTINUATION 1,000 ML IV ONE (06:17)
[2025-01-20] MEDS: MELOXICAM 7.5 MG TAB PO PRN (06:40)
[2025-01-20] MEDS: ACETAMINOPHEN TAB 500 MG TAB PO PRN (06:41)
[2025-01-20] MEDS: ONDANSETRON 4 MG/2 ML VIAL IVP PRN ×2 (06:41→21:32)
[2025-01-20] MEDS: DEXAMETHASONE SOD PHOSPHATE 4 MG/ML 1 ML VIAL IV ONE (06:41)
[2025-01-20] MEDS: GABAPENTIN 300 MG CAP PO PRN (06:41)
[2025-01-20] MEDS: LACTATED RINGERS 1,000 ML IV SCH ×2 (06:42→11:10)
[2025-01-20] MEDS ORDERED: HYDROmorphone 0.5 MG/0.5 ML SYRINGE IVP PRN ×3 (07:00→09:46)
[2025-01-20] MEDS: MIDAZOLAM 2 MG/2 ML VIAL IVP ONE (07:25)
[2025-01-20] MEDS ORDERED: fentaNYL (PF) 50 MCG/ML 2 ML AMP ONE (07:34)
[2025-01-20] MEDS ORDERED: MIDAZOLAM 2 MG/2 ML VIAL ONE (07:34)
[2025-01-20] MEDS ORDERED: ROPIVACAINE 5 MG/ML 30 ML VIAL ONE (07:34)
[2025-01-20] MEDS ORDERED: DEXAMETHASONE SOD PHOSPHATE 4 MG/ML 1 ML VIAL ONE (07:34)
[2025-01-20] MEDS ORDERED: PROPOFOL 10 MG/ML 20 ML VIAL IV ONE (07:34)
[2025-01-20] MEDS ORDERED: PHENYLEPHRINE-0.9% NACL SYG 1,000 MCG/10 ML SYRINGE ONE (07:34)
[2025-01-20] MEDS ORDERED: TRANEXAMIC 1,000 MG/100ML-NACL PREMIX BAG ONE (07:34)
[2025-01-20] MEDS ORDERED: ePHEDrine 50 MG/ML 1 ML VIAL ONE (07:34)
[2025-01-20] MEDS: ceFAZolin 3,000 MG in SODIUM CHLORIDE 0.9% IRRIGATIO 3,000 ML IRRIGATION ONE (08:04)
[2025-01-20] MEDS: LACTATED RINGERS 1,000 ML IV ONE (08:48)
[2025-01-20] MEDS ORDERED: NA PHOS,M-B/NA PHOS,DI-BA 133 ML ENEMA RECTAL PRN (09:46)
[2025-01-20] MEDS ORDERED: traMADol 50 MG TAB PO PRN (09:46)
[2025-01-20] MEDS ORDERED: MAGNESIUM HYDROXIDE 2,400 MG/30 ML CUP PO PRN (09:46)
[2025-01-20] MEDS ORDERED: bisacodyL 10 MG SUPP RECTAL PRN (09:46)
[2025-01-20] MEDS ORDERED: ACETAMINOPHEN TAB 325 MG TAB PO PRN (09:46)
[2025-01-20] MEDS ORDERED: NALOXONE 0.4 MG/ML 1 ML VIAL IV PRN (09:46)
[2025-01-20] MEDS ORDERED: ROPIVACAINE 1,100 MG, SODIUM CHLORIDE 0.9% 500 ML 330 ML, EMPTY PAIN BALL 1 EACH MISCELLANE PRN (10:30)
--- NOTE | 2025-01-20 10:38 | OP ---
OPERATIVE REPORT DATE OF SERVICE : 01/20/2025 CONSUMER PRODUCT ADVISOR: Jairon Dailey PA-C. PREOPERATIVE DIAGNOSIS: Left knee osteoarthrosis. POSTOPERATIVE DIAGNOSIS: Left knee osteoarthrosis. OPERATION: Left total knee arthroplasty. ANESTHESIA: Spinal with sedation. ESTIMATED BLOOD LOSS: 100 mL. TOURNIQUET TIME: 51 minutes at 250 mmHg. COMPLICATIONS: None apparent. DRAINS: None. DISPOSITION: To postanesthesia care unit. INDICATIONS: Reji is a very pleasant 69-year-old male with longstanding history of left knee pain. History and physical examination are consistent with advanced left knee osteoarthrosis. He has been through significant operative management up to this point. Further treatment options were discussed, and he has decided to go forward with a left total knee arthroplasty. Risks of procedure were discussed with him in detail. These risks included but were not limited to risk of infection, nerve damage, bleeding, pain, and a small risk of deep vein thrombosis, which could lead to fatal pulmonary embolism. There is also small risk of loosening of the implant, which could require revision operation. The patient understands these risks. All of his questions with regard to the risks of procedure were answered to his satisfaction. An appropriate informed consent was obtained. DESCRIPTION OF PROCEDURE: The patient was identified in the preoperative holding area. Surgical site was marked by both the patient and myself. He was given 2 g of Ancef IV for prophylactic purposes. He was then transported to the operative suite. He was placed supine in the operating table. Spinal anesthetic was then administered and dosed per the Anesthesia Department without apparent complication. An examination under anesthesia was then performed. The patient was 2 to 3 degrees shy of full extension. He had 100 degrees of flexion, and the medial collateral ligament, lateral collateral ligament, and posterior cruciate ligaments were stable. Tourniquet was then placed high on the left upper thigh, well-padded in preparation for surgery. The patient's left lower extremity was then prepped and draped in the usual sterile fashion. Standard surgical pause undertaken to ensure that we were operating the correct site and that appropriate preoperative antibiotics have been given. All staff in the room were in agreement, and we proceeded. The outlines of the patella were marked with a surgical pen. A planned 12 cm vertical incision, centered over the patella was marked with a surgical pen. The leg was then exsanguinated with an Esmarch dressing. The knee was then flexed, and the tourniquet was inflated to 250 mmHg. The total tourniquet time for the procedure was 51 minutes. Incision was then made with a 10-blade scalpel. Dissection was carried down sharply to the overlying fascia. Great care was taken to minimize the skin flaps. The knee was then exposed, using a standard medial parapatellar approach. A small cuff of quadriceps tendon was then left for suturing. He was in a small amount of valgus preoperatively. A very minimal medial release was then done. This was done just enough to place the medial retractor. The medial meniscus was then excised as well. The lateral meniscus was also released anteriorly. Leg was then externally rotated. The patella was everted. The knee was flexed. The retractor was then placed to protect the collateral ligaments. I then proceeded to remove the infrapatellar fat pad. This was excised sharply tangentially with the fibers of the patellar tendon. I then proceeded to remove the peripheral osteophytes. This was done with a rongeur. I then proceeded with the distal femoral resection. He did have a near full extension. A planned 9 mm resection was then done. The femoral canal was then entered in the midline of the femur, approximately 10 mm anterior to the origin of the posterior cruciate ligament. The leroy was then advanced down the center of the femur and placed intramedullarly. Based on his preoperative radiographs, the angle to angle between the anatomic and mechanical axis of the femur was approximately 4 to 5 degrees. The valgus angle of distal femoral cutting guide was then set at 4 degrees for the left knee. The distal cutting guide was then advanced over the intramedullary leroy. This was seated firmly against the femur. Then, as mentioned, we planned to take 9 mm off the distal femur. The cutting block was then secured onto the femur with pins. Jig was then removed. The distal femoral cut was made through the slot of the block. The pins were then removed, and the distal cutting block was removed. The accuracy of the distal femoral cuts was checked with 2 flat bars. I then proceeded with femoral sizing. Posterior referencing sizing guide was held firmly against the resected distal surface of the femur. The posterior condyles were resting on the posterior plane of the guide. The sizing stylus was then placed on the anterior femur. The size was measured as a size 8. I then assessed for femoral rotation. The plan was for 3 degrees of external rotation. Three degrees of external rotation was placed onto the jig. These holes were then marked. I then confirmed the rotation by 3 separate methods. This was done using epicondylar axis as well as Whitesides line and posterior referencing. It was deemed that the external rotation was proper. I then went forward and placed in the femoral cutting block. This was placed over the previously placed pin holes. The Holger wing was then placed onto the anterior slots to ensure that we would not notch the anterior femur with the anterior femoral cut. I then proceeded with the anterior femoral cut. This was flushed with the anterior cortex of the femur. The posterior cuts were then made, followed by the anterior chamfer cut, then the posterior chamfer cut. Cutting block was then removed. Throughout the resection, the collateral ligaments were protected with retractors. I then placed a trial size 8 femur. It was slightly wide, but the narrow fit very nicely, and it fit flush with the distal end of the femur. The drill holes were then made. I then proceeded with the tibial cut. I planned for cruciate-retaining knee. The guide was placed and set for varus and valgus and for slope. The height was set for approximately 2 mm resection from the lateral tibial plateau, which was the lower side. I was happy with the alignment and amount of resection. The cutting block was then pinned to the proximal tibia. The alignment leroy was removed, and the proximal tibia was resected with a reciprocating saw. Again, this was done with retractors protecting the collateral ligaments as well as the posterior cruciate ligament. I then proceeded to evaluate the flexion and extension gaps. A 10 mm block was then placed. The flexion and extension gaps were equal. I then proceeded to resect the posterior osteophytes. He had very minimal posterior osteophytes. This was done using a curved osteotome. This resected the posterior osteophytes, and posterior capsular stripping was done off the posterior aspect of the femur at this time. The osteophytes were then removed. I then proceeded with resection of the patella. The thickness of the patella was measured using the caliper. The thickness was 22 mm. The thickness of the anticipated patellar dome was then taken into account. The resection was then performed and confirmed to be equal in 4 quadrants using a caliper. Approximately, 14 mm of bone remained after resection. A 32 x 8.5 mm standard patellar trial was then placed. The holes were drilled, and the trial was then placed. I then proceeded with sizing tibial plate. A size F tibial plate fit very nicely. I then placed the trial femur, the tibial tray, and the patellar button. A 10 mm trial tibial insert was also placed. The components fit very nicely. He had full extension and flexion. The extension and flexion gaps were equal and stable to both varus and valgus stress. The patella tracked appropriately. Tibial tray rotation was then marked with a Bovie. This was externally rotated properly. I then proceeded with trial preparation. I first drilled the femoral holes and removed the femoral component. The tibial tray was then set for proper external rotation as well as medial and lateral placement onto the tibia. It was then pinned into place. I then proceeded with punching the keel. I then decided to proceed with cementing of all our components. The knee was thoroughly irrigated with sterile saline solution via pulse lavage. The lateral geniculate artery was identified and cauterized. All blood was removed from the bone of the tibia, femur, and patella with pulsed lavage. I then proceeded with cementing. Two packs of antibiotic bone cement prepared on the back table by surgical garment inspector. I then proceeded with cementing of the tibia first. Cement was impacted in the keel as well as deeply seated into bone. A second coat of cement was then placed. The tibia was then impacted into place. Excess cement was removed with Richard's and jokers. I then proceeded with cementing of the femoral component. The femoral component was also cemented using a standard technique. Excess cement was removed. A 10 mm trial insert was then placed into the knee. It was brought into full extension with a constant axial load placed until the cement had hardened. The patellar component was then cemented. This was held firmly with the compressive device until the cement had dried. When the cement had dried, the knee was taken out of extension. All excess cement was removed from around the prosthesis. I then trialed the knee with 10 mm insert. Flexion and extension gaps were appropriate. The knee was stable. It came into full extension. I decided to go forward with a 10 mm medial congruent cross-linked cruciate- retaining tibial insert. Polyethylene was then placed onto the tibial tray and locked into place. The knee was then reduced. The knee was again further irrigated with sterile saline solution with antibiotic added. The tourniquet was then deflated. Total tourniquet time for the procedure was 51 minutes at 250 mmHg. Final components were Desiree Persona size 8 narrow cruciate-retaining femoral component, a size F tibial tray, a 10 mm medial congruent cruciate-retaining polyethylene insert, and a 32 x 8.5 mm patella. I then proceeded with closure. Again, the knee was thoroughly irrigated. The quadriceps tendon and medial retinaculum were reapproximated with #2 Ethibond suture. The extensor mechanism was then closed with a running #2 Quill suture. Subcutaneous tissues were closed with 2-0 Vicryl interrupted suture. The skin was closed with a running 3-0 Quill suture. Dermabond was applied to the incision. Sterile compressive dressing was then applied. All sponge and needle counts deemed correct prior to closure. The patient tolerated the procedure without apparent complication. He was transferred to the recovery room in stable condition. MMGURVINDER / TARASN: [id number] /
--- NOTE | 2025-01-20 11:01 | XR ---
EXAMINATION TYPE: XR knee limited LT DATE OF EXAM: 01/20/2025 10:33 AM COMPARISON: none CLINICAL INDICATION: Male, 69 years old with history of Evaluation for Postop abnormality and alignme nt; PHH, pain TECHNIQUE: XR knee limited LT 2 views submitted. FINDINGS: Status post total knee arthroplasty changes with hardware in appropriate alignment and in tact. No evidence of fracture. Subcutaneous lucencies and lucencies within the joint consistent with surgical changes. IMPRESSION: Status post total knee arthroplasty changes with hardware intact and appropriate alignment. No fractu res identified. [facility], , 01/20/2025 10:59 AM
[2025-01-20] MEDS: HYDROmorphone 0.5 MG/0.5 ML SYRINGE IVP PRN (11:10)
[2025-01-20] MEDS: HYDROcodone/APAP 10-325MG 1 EACH TAB PO PRN (12:18)
[2025-01-20] MEDS ORDERED: ALBUTEROL NEBULIZED 2.5 MG/3 ML INHALATION PRN (15:30)
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
[2025-01-20] MEDS: TIOTROPIUM 2.5 MCG INHALER INHALATION SCH (19:05)
[2025-01-20] MEDS: SYMBICORT 160-4.5 MCG INHALER INHALATION SCH (19:05)
[2025-01-20] MEDS: CALCIUM CARBONATE 500 MG CHEWABLE PO PRN (19:25)
--- NOTE | 2025-01-20 20:03 | P.ANPRN ---
Procedure Note - Anesthesia - Nerve Block Performed Left Adductor Canal Infusion Time Out Performed: Yes Date of Procedure: 01/20/25 Procedure Start Time: 07:00 Procedure Stop Time: 07:12 Location of Patient: PreOp Indication: Acute Post-Operative Pain, Requested by Surgeon Sedation Type: Sedate with meaningful contact maintained Preparation: Sterile Prep Position: Supine Catheter: Indwelling Needle Types: Pajunk Needle Gauge: 21 Ultrasound used to visualize needle placement: Yes Ultrasound used to observe medication spread: Yes Blood Aspirated: No Pain Paresthesia on Injection Noted: No Resistance on Injection: Normal Image Stored and Saved: Yes Events: Uneventful and Well Tolerated (Ropivacaine 0.5% 20 cc plus dexamethasone 4 mg)
--- NOTE | 2025-01-20 20:04 | P.ANPRN ---
Procedure Note - Anesthesia - Nerve Block Performed Left iPack Single Time Out Performed: Yes Date of Procedure: 01/20/25 Procedure Start Time: 07:13 Procedure Stop Time: 07:16 Location of Patient: PreOp Indication: Acute Post-Operative Pain, Requested by Surgeon Sedation Type: Sedate with meaningful contact maintained Preparation: Sterile Prep Position: Right Lateral Needle Types: Pajunk Needle Gauge: 21 Ultrasound used to visualize needle placement: Yes Ultrasound used to observe medication spread: Yes Blood Aspirated: No Resistance on Injection: Normal Image Stored and Saved: Yes Events: Uneventful and Well Tolerated (Ropivacaine 0.5% 20 cc was dexamethasone 4 mg)
[2025-01-20] MEDS: ASPIRIN 81 MG PO SCH (21:33)
[2025-01-20] MEDS: SENNOSIDES-DOCUSATE SODIUM 1 EACH TAB PO SCH (21:33)
[2025-01-21] MEDS: METOCLOPRAMIDE 5 MG/ML 2 ML VIAL IVP PRN (00:33)
[2025-01-21] MEDS: HYDROcodone/APAP 10-325MG 1 EACH TAB PO PRN (01:55)
--- NOTE | 2025-01-21 07:07 | P.PN ---
Progress Note - Text 01/21/25 650am 69-year-old male status post total knee replacement. Patient has an On-Q pump for postop pain control with a solution running at 8 cc an hour with a VAS of 4. Dressing clean dry and intact. The pain is located primarily posteriorly and on the top of the thigh secondary to the tourniquet. Plan to continue On-Q pump infusion
[2025-01-21] MEDS: lisinopriL 10 MG TAB PO SCH (08:05)
[2025-01-21] MEDS: CHOLECALCIFEROL 25 MCG (1000 IU) TABLET PO SCH (08:05)
[2025-01-21] MEDS: ATORVASTATIN 20 MG TAB PO SCH (08:05)
[2025-01-21] MEDS: MONTELUKAST 10 MG TAB PO SCH (08:05)
[2025-01-21 08:27] LABS: HCT 34.8 % (39.6-50.0); HGB 11.5 g/dL (13.0-17.0); MCH 32.5 pg (27.0-32.0); MCV 98.3 FL (80.0-97.0); Mean Platelet Volume 10.3 FL (9.5-12.2); NRBC Per 100 WBC 0 X 10*3/uL (0.00-0.01); Platelet Count 237 X 10*3/uL (140-440); RBC 3.54 X 10*6/uL (4.40-5.60); RDW 13.1 % (11.5-14.5); WBC 15.51 X 10*3/uL (4.50-10.00)
[2025-01-21 09:14] LABS: Basophils # (A) 0.03 X 10*3/uL (0.00-0.10); Basophils % (A) 0.2 %; Eosinophils # (A) 0.01 X 10*3/uL (0.04-0.35); Eosinophils % (A) 0.1 %; Lymphocytes # (A) 1.87 X 10*3/uL (0.90-5.00); Lymphocytes % (A) 12.1 %; Monocytes # (A) 1.53 X 10*3/uL (0.20-1.00); Monocytes % (A) 9.9 %; Neutrophils # (A) 12.01 X 10*3/uL (1.80-7.70); Neutrophils % (A) 77.3 %
--- NOTE | 2025-01-21 12:17 | P.DS ---
Providers Expected date of discharge: 01/21/25 Attending physician: Richard Horowitz Consults: 01/20/25 09:46 Consult Physician Routine Consulting Provider: Taz Thompson Consult Reason/Comments: post op medical management Do you want consulting provider notified?: Yes Primary care physician: Natalia Salmon - Discharge Diagnosis(es) (1) Osteoarthritis of left knee Patient was admitted to the OR on 01/20/25 to undergo a left total knee arthroplasty. He had failed conservative measures as an outpatient and desired to proceed with elective surgery after given informed consent. He underwent the above procedure which he tolerated well without complication. Postoperative hospital course has remained without complication. On day of discharge he is afebrile, vital signs stable, labs within acceptable ranges, tolerating by mouth meds and diet, voiding without difficulty, positive flatus, denies abdominal pain or calf pain, pain is controlled on oral pain medication and has no new complaints. Wound is benign, neurovascular status is intact, calf is soft and nontender, abdomen soft and nontender. Review of systems is negative for numbness, tingling, fever, chills, chest pain, shortness of breath, nausea, vomiting, dizziness, headaches, slurred speech or other. Current Visit: Yes Status: Acute Priority: Medium Procedures: Left TKA Patient Condition at Discharge: Good Plan - Discharge Summary Discharge Rx Participant: No New Discharge Prescriptions: New Ondansetron [Zofran] 4 mg PO Q8HR PRN #21 tab PRN Reason: Nausea Aspirin [Adult Low Dose Aspirin EC] 81 mg PO BID #60 tab Docusate [Colace] 100 mg PO BID #60 capsule No Action lisinopriL 30 mg PO QAM Acetaminophen [Tylenol Extra Strength] 1,000 mg PO Q6H PRN PRN Reason: Pain Vitamin D3(Unknown Dose) 1 dose PO QAM Hydrocodone-Acetamin 7.5 - 325 mg PO BID PRN PRN Reason: Pain Fluticasone/Umeclidin/Vilanter [Trelegy Ellipta 100-62.5-25] 1 puff INHALATION HS Albuterol Sulfate [Proair Respiclick] 1 puff INHALATION DIRECTED PRN PRN Reason: Shortness Of Breath Atorvastatin [Lipitor] 20 mg PO DAILY Montelukast [Singulair] 10 mg PO QAM Calcium Carbonate [Tums] 1,000 mg PO TID PRN tab PRN Reason: Heartburn Discharge Medication List lisinopriL 30 mg PO QAM 07/29/19 [History] Acetaminophen [Tylenol Extra Strength] 1,000 mg PO Q6H PRN 08/03/21 [History] Atorvastatin [Lipitor] 20 mg PO DAILY 08/03/21 [History] Montelukast [Singulair] 10 mg PO QAM 02/07/24 [History] Calcium Carbonate [Tums] 1,000 mg PO TID PRN tab 02/11/24 [Rx] Albuterol Sulfate [Proair Respiclick] 1 puff INHALATION DIRECTED PRN 12/31/24 [History] Fluticasone/Umeclidin/Vilanter [Trelegy Ellipta 100-62.5-25] 1 puff INHALATION HS 12/31/24 [History] Hydrocodone-Acetamin 7.5 - 325 mg PO BID PRN 12/31/24 [History] Vitamin D3(Unknown Dose) 1 dose PO QAM 12/31/24 [History] Aspirin [Adult Low Dose Aspirin EC] 81 mg PO BID #60 tab 01/21/25 [Rx] Docusate [Colace] 100 mg PO BID #60 capsule 01/21/25 [Rx] Ondansetron [Zofran] 4 mg PO Q8HR PRN #21 tab 01/21/25 [Rx] Follow up Appointment(s)/Referral(s): Richard Horowitz MD [STAFF PHYSICIAN] - 02/01/25 10:30 am Activity/Diet/Wound Care/Special Instructions: Weight bear as tolerated May shower after 3 days if no bleeding Keep wound clean and dry Take meds as directed Follow up with Dr. Horowitz in office Discharge Disposition: HOME WITH HOME HEALTH SERVICES
[2025-01-21] MEDS: MULTIVITAMINS, THERA 1 EACH TAB PO SCH (12:25)
--- NOTE | 2025-01-21 12:53 | P.PN ---
Subjective Progress Note Date: 01/21/25 Interval History: 69-year-old male patient with past medical history significant for hypertension, hyperlipidemia, left knee osteoarthritis was following orthopedic as outpatient, underwent left total knee arthroplasty. Internal medicine consulted for medical management. Patient denied any fever, chills, sore throat, productive cough, shortness breath, chest pain, palpitation, nausea vomiting diarrhea constipation abdominal pain dysuria urgency frequency weakness or numbness of the extremities. Patient is afebrile, heart rate 79, respiratory rate 16, blood pressure 96/57, saturating 96% on room air. 01/21--Patient was seen and examined today. Complaining of left knee pain. Afebrile, heart rate 72, respiratory rate 18, blood pressure 124/65, saturating 97% on room air. WBCs 15.5 likely reactive, hemoglobin 11.5, platelet 237. Assessment and plan: Status post left knee total arthroplasty: Management per orthopedic Pain management, DVT prophylaxis, perioperative antibiotics per orthopedic Neurochecks PT/OT consult Fall precautions Bowel/bladder protocol. Hypertension: Resume lisinopril Hyperlipidemia: Resume home med atorvastatin. COPD: Continue home inhalers. DVT prophylaxis: Per orthopedics Monitor vital signs and labs Labs and medication were reviewed. Continue same treatment. Further recommendations as per clinical course of the patient PHYSICAL EXAMINATION: GENERAL: The patient is A&O x3, NAD HEENT: EOMI, Sclerae anicteric, Moist Mucous membranes Neck: Supple, Non tender, No JVD PULMONARY: Equal breath souds B/L, No wheezing, No crackles. CARDIOVASCULAR: S1, S2 present. No murmurs, rubs, or gallops. ABDOMEN: Soft, nontender, nondistended, normoactive bowel sounds. No guarding or rebound tenderness. MUSCULOSKELETAL: No edema, No cyanosis. No clubbing. Normal ROM. Intact peripheral pulses. Right kneedressed NEUROLOGICAL: CN 2-12 grossly intact. No FND REVIEW OF SYSTEMS: CONSTITUTIONAL: No fever or chills. CARDIOVASCULAR: No chest pain, palpitations or syncope. PULMONARY: No shortness of breath, no cough, sore throat. GASTROINTESTINAL: No nausea, vomiting, diarrhea, abdominal pain. : No Dysuria, urgency, frequency. Extremities: No edema. NEUROLOGICAL: No headaches, no weakness, or numbness Dictation was produced using [employer] software. please excuse any grammatical, word or spelling errors. Objective - Vital Signs Vital signs: Vital Signs Temp 98.2 F 01/21/25 07:06 Pulse 72 01/21/25 07:06 Resp 18 01/21/25 07:06 BP 124/65 01/21/25 07:06 Pulse Ox 97 01/21/25 07:51 FiO2 Intake & Output 01/20/25 01/21/25 01/21/25 18:59 06:59 18:59 Intake Total 951 Output Total 100 Balance 851 Weight 84.9 kg Intake: IV 951 Output: Estimated Blood Loss 100 Other: Voiding Method Toilet # Voids 3 1 - Labs CBC & Chem 7: 01/21/25 05:07 Labs: Abnormal Lab Results - Last 24 Hours (Table) 01/21/25 Range/Units 05:07 WBC 15.51 H (4.50-10.00) X 10*3/uL RBC 3.54 L (4.40-5.60) X 10*6/uL Hgb 11.5 L (13.0-17.0) g/dL Hct 34.8 L (39.6-50.0) % MCV 98.3 H (80.0-97.0) FL MCH 32.5 H (27.0-32.0) pg Immature Gran # 0.06 H (0.00-0.04) X 10*3/uL Neutrophils # 12.01 H (1.80-7.70) X 10*3/uL Monocytes # 1.53 H (0.20-1.00) X 10*3/uL Eosinophils # 0.01 L (0.04-0.35) X 10*3/uL
[2025-01-21 13:46] VITALS: RESP 20; TEMP 97.6
[2025-01-21 14:46] VITALS: BP 150/64; PULSE 89
== END 2025-01-21 15:32 | disposition home health service (06) ==
LOC: OR 05:38 → 4SSUR 09:39 → OR 01-21 15:32
PROVIDERS: ATTEND Orthopaedic Surgery Sports Medicine
DX: M17.12 Unilateral primary osteoarthritis, left knee (principal); H91.90 Unspecified hearing loss, unspecified ear; E78.5 Hyperlipidemia, unspecified; I10 Essential (primary) hypertension; J44.9 Chronic obstructive pulmonary disease, unspecified; G89.18 Other acute postprocedural pain; F17.210 Nicotine dependence, cigarettes, uncomplicated; F10.90 Alcohol use, unspecified, uncomplicated; Z79.82 Long term (current) use of aspirin; Z79.899 Other long term (current) drug therapy; Z79.51 Long term (current) use of inhaled steroids
CPT/HCPCS: 94640 ×3; 94760; 97161; 64999; 64448; 85025; 73560; 27447; C1776; C1713; C1751; J2250; J1100; J2765; J0690 ×2; J2405; J1171

== ENCOUNTER → 2025-04-23 | Outpatient (CLI) | payer MEDICARE, OTHER ==
--- NOTE | 2025-04-27 09:08 | MR ---
EXAMINATION TYPE: MR Prostate wo/w con DATE OF EXAM: 04/23/2025 9:14 AM COMPARISON: None. CLINICAL INDICATION: Male, 69 years old with history of R97.20 ELEVATED PROSTATE SPECIFIC ANTIGEN [PS A]; Elevated PSA TECHNIQUE: Multi-planar, multi-sequence imaging of the pelvis is performed prior to and following the uncomplicated administration of bolus intravenous gadolinium. IV Contrast: 8 mL Gadobutrol Interpretive Criteria: PI-RADS v2.1 SERUM PSA: 2024=6.84, 2022=3.64, 2020=3.2 SURGICAL PATHOLOGY: No data available. FINDINGS: Prostatic dimensions: 4.9 x 4.9 x 4.1 cm. Ellipsoid Volume:51.54 (PSA density=0.13 ng/mL/mL) CENTRAL GLAND (Central and Transition Zones/CZ+TZ): Multiple bilateral, heterogenous appearing hypertrophic stromal nodules, without suspicious lesion. (PI-RADS 2) PERIPHERAL ZONE (PZ): Bilateral linear, indistinct wedgelike areas of low ADC, and low T2 signal, No evidence of masslike a bnormality, or localized perfusional hypervascularity, to further suggest a focus of clinically signi ficant prostate cancer. (PI-RADS 2) SEMINAL VESICLES (SV): Symmetric and unremarkable. PERIPROSTATIC TISSUES: Unremarkable. LYMPH NODES: No enlarged pelvic lymph node. REMAINING PELVIS: Bladder wall is within normal limits given distention. No abnormal free or organized intrapelvic fluid collection. No pathologic bowel dilation or mural thickening. Bilateral fat containing inguinal hernias. OSSEOUS STRUCTURES: No suspicious osseous abnormality. IMPRESSION: 1. No specific features for high-risk prostate cancer. Maximum PI-RADS score: 2. 2. Moderate BPH, estimated gland volume 51.54 (PSA density=0.13 ng/mL/mL) 3. No suspicious osseous lesion. No lymphadenopathy. No evidence of prostate adenocarcinoma involving the periprostatic tissues. [facility], , 04/27/2025 9:06 AM
== END | disposition home or self-care (01) ==
LOC: RADMRIMAIN 08:21
PROVIDERS: ATTEND Urology
DX: N40.0 Benign prostatic hyperplasia without lower urinary tract symptoms (principal); R97.20 Elevated prostate specific antigen [PSA]
CPT/HCPCS: 72197; A9585